=== PATIENT | male | born 1990 | race Hispanic/Latino ===

== ENCOUNTER 2016-04-10 16:39 | Emergency (ER) | payer MEDICARE, MEDICAID ==
[2016-04-10 18:55] LABS: Urine Drugs of Abuse Note Disclamer
[2016-04-10 19:44] LABS: Bilirubin,Urine NEG (Negative)
[2016-04-10 19:45] LABS: Blood,Urine NEG (Negative); Ketones,Urine NEG (Negative); Leukocyte Esterase,Urine NEG (Negative); Mucus,Urine FEW /HPF; Nitrite,Urine NEG (Negative); Protein,Urine <15 mg/dL mg/dL (Negative); Urobilinogen,Urine < 2.0 mg/dL (<2.0)
[2016-04-10 19:47] LABS: Anion Gap 19 mmol/L; Blood Urea Nitrogen 14 mg/dL (9-20); Carbon Dioxide 22 mmol/L (22-30); Chloride 99.4 mmol/L (98-107); Glucose 100 mg/dL (75-100); Potassium 4.2 mmol/L (3.6-5.0); Sodium 136 mmol/L (137-145)
[2016-04-10 19:55] LABS: Hematocrit 44.2 % (35.5-45.6); Hemoglobin 15.5 gm/dl (11.8-15.2); Mean Corpuscular HGB Conc 35 % (32-34); Mean Corpuscular Hemoglobin 33 pg (28-32); Mean Corpuscular Volume 94 fl (84-94); Platelet Count 197 K/mm3 (140-440); Red Cell Distribution Width 12.4 % (13.2-15.2); White Blood Count 10.1 K/mm3 (4.5-11.0)
--- NOTE | 2016-04-10 20:43 | Emergency Department Report ---
HPI - General Chief Complaint: Psych Time Seen by Provider: 04/10/16 20:19 - HPI HPI: The patient is a 25-year-old male who presents for evaluation of mental health. The patient reports 1 day of constant severe sadness, and thoughts of suicidal ideation. He states that he has experienced thoughts of hanging himself and hanging other people. The patient denies fever, headache, unexplained weight loss or weight gain, heat or cold intolerance, skin, hair, or nail changes, neuro deficits, or auditory or visual hallucinations. ED Past Medical Hx - Past Medical History Hx Psychiatric Treatment: Yes (denies, although has been hosptialized for SI in past) - Surgical History Past Surgical History?: No - Social History Smoking Status: Never Smoker Substance Use Type: None - Medications Home Medications: Home Medications Medication Instructions Recorded Confirmed Last Taken Type SEROquel 400 mg PO DAILY 04/10/16 04/10/16 Unknown History ED Review of Systems ROS: Stated complaint: HEARING VOICES Other details as noted in HPI Constitutional: denies: fever ENT: denies: throat or neck pain Respiratory: denies: cough, shortness of breath Cardiovascular: denies: chest pain Endocrine: denies unexplained weight loss or gain Gastrointestinal: denies: abdominal pain, nausea Genitourinary: denies: dysuria Musculoskeletal: denies: leg swelling Skin: denies: rash Neurological: denies: headache Hematological/Lymphatic: denies: easy bleeding or easy bruising Psych: reports sadness, SI Physical Exam - Physical Exam Vital Signs: Vital Signs 04/10/16 17:53 Temperature 98.3 F Pulse Rate 99 H Respiratory 16 Rate Blood Pressure 146/87 O2 Sat by Pulse 99 Oximetry Physical Exam: General: well-nourished, well-developed, no acute distress Head: Normocephalic, atraumatic Eyes: normal sclera ENT: Mucous membranes are pale and dry Neck: No neck stiffness, no cervical adenopathy Respiratory: Breath sounds equal bilaterally, no wheezing, rales, or rhonchi Cardio: S1 and S2 present, no murmurs, rubs, gallops, capillary refill is delayed Abdomen: Normoactive bowel sounds, soft abdomen, no tenderness Musc: No pitting edema Skin: No rash Neuro: no facial drooping, normal speech Psych: Flat affect, poor insight, patient delusional, depressed mood ED Course Vital Signs 04/10/16 17:53 Temperature 98.3 F Pulse Rate 99 H Respiratory 16 Rate Blood Pressure 146/87 O2 Sat by Pulse 99 Oximetry ED Medical Decision Making - Lab Data Result diagrams: 04/10/16 19:09 04/10/16 19:09 - Medical Decision Making The patient was seen and examined by myself. The patient is placed on a inside b2b sales and continuous pulse ox. On initial evaluation, the patient was found to be in no distress. IV access is established and the patient given 1 L normal saline fluid bolus for treatment of his dehydration. Labs are obtained. Lab results are grossly unremarkable. CT scan of the head is obtained and is negative. The patient is medically clear. Mental health is consulted. Mental health evaluates the patient and agrees that the patient is exhibiting symptoms consistent with acute psychosis. A 1013 is completed. The patient will be admitted to a psychiatric facility once bed placement is obtained. Critical care attestation.: If time is entered above; I have spent that time in minutes in the direct care of this critically ill patient, excluding procedure time. ED Disposition Clinical Impression: Suicidal behavior, Acute psychosis, Dehydration Disposition: DC/TX PSY HOSP/PSY UNIT Is pt being admited?: No Does the pt Need Aspirin: No Condition: Stable Referrals: PRIMARY CARE [Primary Care Provider] - 3-5 Days Time of Disposition: 20:43
[2016-04-10] MEDS ORDERED: NACL 0.9% 1000 ML 1,000 ML IV ONE (20:54)
--- NOTE | 2016-04-11 03:50 | Cat Scan Report ---
FINAL REPORT PROCEDURE: CT HEAD/BRAIN WO CON TECHNIQUE: Computerized tomography of the head was performed without contrast material. HISTORY: Headache COMPARISON: No prior studies are available for comparison. FINDINGS: Skull and scalp: Normal. Paranasal sinuses: Normal. Ventricles and subarachnoid spaces: Normal. Cerebrum: No evidence of hemorrhage, acute infarction or mass . Cerebellum and brainstem: No evidence of hemorrhage, acute infarction or mass. Vasculature: Normal. Comments: The patient's head is slightly rotated which creates a slightly asymmetric appearance to the ventricles.. IMPRESSION: 1. Overall negative CT brain without contrast when accounting for slight distortion of structures due to patient rotation. There is no CT evidence of intracranial hemorrhage or edema or shift or infarct or acute finding. 2. If there is continued concern for brain abnormality or unexplained symptoms, additional diagnostic evaluation advised only clinically indicated.
[2016-04-11] MEDS ORDERED: MILK OF MAGNESIA PO PRN (04:36)
[2016-04-11] MEDS ORDERED: ALUM-MAG HYDROX-SIMETH 200-200-20MG/5ML PO PRN (04:36)
[2016-04-11] MEDS ORDERED: TYLENOL PO PRN (04:36)
[2016-04-11] MEDS ORDERED: SEROQUEL 400 MG PO SCH (10:00)
[2016-04-11 18:51] VITALS: BP 126/76
--- NOTE | 2016-04-11 19:48 | Consultation ---
History of Present Illness - Reason for Consult Reason for consult: psych management - Chief Complaint Chief complaint: CC: "need good medication" Patient is a 25 year old WM with prior psych history of SCPT. Patient presents to [facility] in a disorganized fashion. He is unable to tell me why he is at the hospital. He does admit to +AH and +VH but can't say how long these symptoms have been occurring. Regarding any triggers he can't say. The content of the AH is unknown "I'm not sure." The VH consists of "people in towels." Patient was quite disorganized during our discussion, often jumping to various unrelated topics. He notes that "I'm not sure", regarding any symptoms of depression. He did deny any SI/HI. Initially denied any illicit drugs or etoh but then admitted to consistent THC use. Overall patient was too disorganized to give any linear presentation as to what brought him into the hospital or has contributed to his presentation. Medications and Allergies Allergies Allergy/AdvReac Type Severity Reaction Status Date / Time No Known Allergies Allergy Verified 08/17/15 22:15 Home Medications Medication Instructions Recorded Confirmed Last Taken Type SEROquel 400 mg PO DAILY 04/10/16 04/10/16 Unknown History Active Meds: Active Medications Acetaminophen (Tylenol) 650 mg PO Q4HR PRN PRN Reason: Pain MILD(1-3)/Fever >100.5/GREEN Al Hydrox/Mg Hydrox/Simethicone (Alum-Mag Hydrox-Simeth [phone]/5ml) 30 ml PO Q4HR PRN PRN Reason: Indigestion Magnesium Hydroxide (Milk Of Magnesia) 30 ml PO Q12HR PRN PRN Reason: Constipation Quetiapine Fumarate (Seroquel) 400 mg PO DAILY [facility] Last Admin: 04/11/16 11:00 Dose: 400 mg Past psychiatric history - past Psychiatric treatment and history Psych: Schizophrenia psychiatric treatment history: inpt: "lots"- pt couldn't give details outp "Yari" +SA via O/D "I'm not even sure." unknown prior psych meds unknown family psych history Substance history: no etoh use THC:- everyday use, last used yesterday, using for last 8 years, arrested with DWI secondary to marijuana use, has been in rehab at [place] - Social History Social history: other (Lives at [place], no children, no dating, no abuse history, no work, family support comes from the father, education:12 grade) Mental Status Exam - Vital signs Last Vital Signs Temp 98.6 F 04/11/16 11:00 Pulse 70 04/11/16 11:00 Resp 18 04/11/16 11:00 BP 126/76 04/11/16 11:00 Pulse Ox 99 04/11/16 11:00 - Exam Orientation: person Affect: flat Mood: appropriate Thought content: delusions Thought Process: Circumstantial, Tangential, Disorganized Perceptions: visual, auditory, hallucinations Speech: normal rate and pattern Concentration: distractible, unable to pay attention Motor activity: normal Level of consciousness: alert Memory: Intact Interaction: cooperative (AAO x 1, date 1998, states he's at [place], spelled WORLD backwards correctly, states President is [place]) Mini mental status exam(if necessary): 18-23 Results Result Diagrams: 04/10/16 19:09 04/10/16 19:09 Abnormal lab results 04/10/16 04/10/16 Range/Units 19:09 19:09 Hgb 15.5 H (11.8-15.2) gm/dl MCH 33 H (28-32) pg MCHC 35 H (32-34) % RDW 12.4 L (13.2-15.2) % Sodium 136 L (137-145) mmol/L Creatinine 0.7 L (0.8-1.5) mg/dL All other labs normal. Assessment and Plan Assessment and plan: Patient is a 25 year old WM with prior psych history of SCPT. Patient presents to [facility] in a disorganized fashion. He is unable to tell me why he is at the hospital. He does admit to +AH and +VH though. psychosis: continue treatment with Seroquel to decreased psychosis and will monitor -transfer to in psych facility secondary to psychosis, disorganized behaviors, and substance use, may want to check for any metabolic syndrome via HB1AC and lipid panel. Obtain collateral - Psychiatric problem (1) Schizophrenia Current Visit: Yes Status: Acute Qualifiers: Schizophrenia type: paranoid schizophrenia Qualified Code(s): F20.0 - Paranoid schizophrenia
== END 2016-04-12 00:57 ==
LOC: ED 16:39 → EEVIPCON 16:39 → ED 04-12 00:57
DX: F23 Brief psychotic disorder (principal); R45.851 Suicidal ideations; E86.0 Dehydration
CPT/HCPCS: 36415; 70450; 80048; 80307; 81001; 85027; 96360; 99285; G0480; J7030; 80320

== ENCOUNTER 2016-05-25 19:13 | Emergency (ER) | payer MEDICARE, MEDICAID ==
[2016-05-25 20:51] LABS: Basophils % (Auto) 0.4 % (0.0-1.8); Eosinophils % (Auto) 5.8 % (0.0-4.3); Hematocrit 42.7 % (35.5-45.6); Hemoglobin 14.6 gm/dl (11.8-15.2); Mean Corpuscular HGB Conc 34 % (32-34); Mean Corpuscular Hemoglobin 32 pg (28-32); Mean Corpuscular Volume 94 fl (84-94); Platelet Count 180 K/mm3 (140-440); Red Blood Count 4.56 M/mm3 (3.65-5.03); Red Cell Distribution Width 12.8 % (13.2-15.2); White Blood Count 8.1 K/mm3 (4.5-11.0)
[2016-05-25 20:58] LABS: Anion Gap 18 mmol/L; BUN/Creatinine Ratio 11.66; Blood Urea Nitrogen 7 mg/dL (9-20); Calcium 8.6 mg/dL (8.4-10.2); Carbon Dioxide 21 mmol/L (22-30); Chloride 102.3 mmol/L (98-107); Glucose 92 mg/dL (75-100); Potassium 3.7 mmol/L (3.6-5.0); Sodium 138 mmol/L (137-145)
--- NOTE | 2016-05-26 03:34 | Emergency Department Report ---
ED Psych HPI - General Chief Complaint: Psych Stated Complaint: FEET PAIN Time Seen by Provider: 05/26/16 03:19 Source: patient Mode of arrival: Stretcher - History of Present Illness Initial Comments: Patient is a 25-year-old male with history of schizophrenia and psychosis who presents to the ER for "psych help". Patient is a poor historian and cannot give a linear coherent reason for coming to the ER. Patient reports he is supposed to be taking Risperdal and Depakote but cannot report when the last time he has taken it or his dosages. He should also reports bilateral foot pain. Otherwise no fevers, chills, headaches, shortness of breath, chest pain, nausea, vomiting, diarrhea, travel, or sick contacts. Patient denies any suicidal ideation or homicidal ideation. - Related Data Home Medications Medication Instructions Recorded Confirmed Last Taken SEROquel 400 mg PO DAILY 04/10/16 04/10/16 Unknown Allergies Allergy/AdvReac Type Severity Reaction Status Date / Time quetiapine fumarate Allergy Unknown Verified 05/26/16 03:04 [From Seroquel] ED Review of Systems ROS: Stated complaint: FEET PAIN Other details as noted in HPI Comment: All other systems reviewed and negative ED Past Medical Hx - Past Medical History Previous Medical History?: Yes Hx Psychiatric Treatment: Yes (denies, although has been hosptialized for SI in past) Additional medical history: bipolar and schizo, - Surgical History Past Surgical History?: No - Social History Smoking Status: Current Every Day Smoker Substance Use Type: Alcohol - Medications Home Medications: Home Medications Medication Instructions Recorded Confirmed Last Taken Type SEROquel 400 mg PO DAILY 04/10/16 04/10/16 Unknown History ED Physical Exam - General Limitations: No Limitations General appearance: alert, in no apparent distress - Head Head exam: Present: atraumatic, normocephalic - Eye Eye exam: Present: normal appearance - ENT ENT exam: Present: mucous membranes moist - Neck Neck exam: Present: normal inspection - Respiratory Respiratory exam: Present: normal lung sounds bilaterally. Absent: respiratory distress - Cardiovascular Cardiovascular Exam: Present: regular rate, normal rhythm. Absent: systolic murmur, diastolic murmur, rubs, gallop - GI/Abdominal GI/Abdominal exam: Present: soft, normal bowel sounds - Rectal Rectal exam: Present: deferred - Extremities Exam Extremities exam: Present: normal inspection - Back Exam Back exam: Present: normal inspection - Neurological Exam Neurological exam: Present: alert, oriented X3 - Psychiatric Psychiatric exam: Present: flat affect, other (tangential thinking, cannot maintain eye contact) - Skin Skin exam: Present: warm, dry, intact, normal color. Absent: rash ED Course Vital Signs 05/25/16 05/26/16 05/26/16 19:33 03:15 03:56 Temperature 98.1 F 98.0 F Pulse Rate 85 52 L Respiratory 16 18 18 Rate Blood Pressure 125/79 91/43 [Left] O2 Sat by Pulse 99 100 99 Oximetry 05/26/16 11:00 Temperature 96.5 F L Pulse Rate 76 Respiratory 16 Rate Blood Pressure 102/55 [Left] O2 Sat by Pulse 100 Oximetry ED Medical Decision Making - Lab Data Result diagrams: 05/25/16 20:26 05/25/16 20:26 - Medical Decision Making Psych consult appreciated and noted. Pt to be admitted to inpatient psych services and to be started on risperdal and cogentin Critical care attestation.: If time is entered above; I have spent that time in minutes in the direct care of this critically ill patient, excluding procedure time. ED Disposition Clinical Impression: Psychosis Schizophrenia Qualifiers: Schizophrenia type: paranoid schizophrenia Qualified Code(s): F20.0 - Paranoid schizophrenia Disposition: OP ADMITTED IP TO THIS HOSP Is pt being admited?: Yes Condition: Stable
[2016-05-26 03:40] LABS: Urine Drugs of Abuse Note Disclamer
[2016-05-26 03:48] LABS: Bilirubin,Urine NEG (Negative); Blood,Urine NEG (Negative); Ketones,Urine NEG (Negative); Leukocyte Esterase,Urine NEG (Negative); Nitrite,Urine NEG (Negative); Protein,Urine <15 mg/dL mg/dL (Negative); Urobilinogen,Urine < 2.0 mg/dL (<2.0)
--- NOTE | 2016-05-26 14:53 | Consultation ---
History of Present Illness - Reason for Consult Consult date: 05/26/16 Reason for consult: Mental Health Evaluation Requesting physician: GARIMA NAVA - Chief Complaint Chief complaint: "I have foot pain" - History of Present Psychiatric Illness Patient is a 25-year-old male with history of schizophrenia and psychosis who presents to the ER for "psych help". Today patient is calm, cooperative with a non linear thought process. He is fixed and focus on his "feet pain." He stated that he went to a local pharmacy wanting help for his feet pain. He stated, "That's all I remember." He could not tell me anything about what happened at the pharmacy. During the discussion I had to redirect him, because he stated again, "My feet hurt." He could tell me he resides at [address], but was not able to tell me the President of or the name of this hospital. He denies symptoms of depression or a poor appetite. He did admit to smoking marijuana. He is positive for marijuana. He denies SI/HI's and AVH's at this time. Per ER admission, patient stated that he takes risperdal and depakote. The patient could not confirm that. Medications and Allergies Allergies Allergy/AdvReac Type Severity Reaction Status Date / Time quetiapine fumarate Allergy Unknown Verified 05/26/16 03:04 [From Seroquel] Home Medications Medication Instructions Recorded Confirmed Last Taken Type SEROquel 400 mg PO DAILY 04/10/16 04/10/16 Unknown History Past psychiatric history - Past Medical History Past Medical History: No medical history Past Surgical History: No surgical history - past Psychiatric treatment and history Psych: Schizophrenia psychiatric treatment history: Patient states he has been to multiple inpatients in the [facility]. He could not name any. Denies family hx of psy - Social History Social history: other (Live at [facility], HS graduate) Mental Status Exam - Vital signs Last Vital Signs Temp 98.0 F 05/26/16 03:15 Pulse 52 L 05/26/16 03:15 Resp 18 05/26/16 03:56 BP 91/43 05/26/16 03:15 Pulse Ox 99 05/26/16 03:56 - Exam Narrative exam: ROS (+) disorganized, (-) depression, (+) psychosis MSE: Appearance: disheveled, cooperative Behavior: poor eye contact Speech: regular rate and tone Mood: 'I don't have a mood" Affect: constricted Thought Process: limited, fixed, thought blocking Thought Content: denies SI/HI's and AVH's Cognition: A/Ox 2, confused Motor Activity: ambulatory Insight: poor Judgment: poor Results Result Diagrams: 05/25/16 20:26 05/25/16 20:26 Abnormal lab results 05/25/16 05/25/16 Range/Units 20:26 20:26 RDW 12.8 L (13.2-15.2) % [place] % (Auto) 8.0 H (0.0-7.3) % Eos % (Auto) 5.8 H (0.0-4.3) % Eos # 0.5 H (0.0-0.4) K/mm3 Carbon Dioxide 21 L (22-30) mmol/L BUN 7 L (9-20) mg/dL Creatinine 0.6 L (0.8-1.5) mg/dL All other labs normal. Assessment and Plan Assessment and plan: Impression: Psychosis NOS/Substance Use DO. Patient is a 25-year-old male with history of schizophrenia and psychosis who presents to the ER for "psych help". Today patient is calm, cooperative with a non linear thought process. He is fixed and focus on his "feet pain." He stated that he went to a local pharmacy wanting help for his feet pain. He stated, "That's all I remember." He denies SI /HI's at this time. Positive for marijuana. Per ER admission note, patient stated that he takes risperdal and depakote. The patient could not confirm that. Patient is positive for marijuana. DD: Schizophrenia, Shizoaffective DO Recommendation/Plan: Continue 1013 with placement to inpatient psy services. Start risperdal 2 mg PO HS for psychosis and Cogentin 0.5 mg PO HS for EPS prophylaxis. IL serum ordered.
[2016-05-26 15:44] VITALS: BP 102/55
[2016-05-26] MEDS ORDERED: RisperDAL PO SCH (22:00)
[2016-05-26] MEDS ORDERED: COGENTIN PO SCH (22:00)
== END 2016-05-26 15:46 | disposition admitted as inpatient to this hospital (09) ==
LOC: ED 19:13 → EEVIPCON 19:13 → ED 05-26 15:46
DX: F29 Unspecified psychosis not due to a substance or known physiological condition (principal); F20.0 Paranoid schizophrenia; F31.9 Bipolar disorder, unspecified; F17.200 Nicotine dependence, unspecified, uncomplicated
CPT/HCPCS: 36415; 80048; 80164; 80307; 81001; 85025; 99285; G0480; 80320

== ENCOUNTER 2016-09-06 14:18 | Emergency (ER) | payer MEDICARE, MEDICAID ==
[2016-09-06 15:07] VITALS: BP 113/62
[2016-09-06 15:52] LABS: Urine Drugs of Abuse Note Disclamer
[2016-09-06 16:04] LABS: Bilirubin,Urine NEG (Negative); Blood,Urine NEG (Negative); Ketones,Urine NEG (Negative); Leukocyte Esterase,Urine NEG (Negative); Nitrite,Urine NEG (Negative); Protein,Urine <15 mg/dL mg/dL (Negative); RBC,Urine < 1.0 /HPF (0.0-6.0); Urobilinogen,Urine < 2.0 mg/dL (<2.0)
[2016-09-06 16:49] LABS: Basophils % (Auto) 0.7 % (0.0-1.8); Eosinophils % (Auto) 1.9 % (0.0-4.3); Hematocrit 45.6 % (35.5-45.6); Hemoglobin 15.8 gm/dl (11.8-15.2); Mean Corpuscular HGB Conc 35 % (32-34); Mean Corpuscular Hemoglobin 33 pg (28-32); Mean Corpuscular Volume 94 fl (84-94); Platelet Count 157 K/mm3 (140-440); Red Blood Count 4.87 M/mm3 (3.65-5.03); Red Cell Distribution Width 12.8 % (13.2-15.2)
[2016-09-06 17:06] LABS: Anion Gap 23 mmol/L; Blood Urea Nitrogen 7 mg/dL (9-20); Calcium 9.3 mg/dL (8.4-10.2); Carbon Dioxide 19 mmol/L (22-30); Chloride 104.9 mmol/L (98-107); Glucose 107 mg/dL (75-100); Potassium 3.6 mmol/L (3.6-5.0); Sodium 143 mmol/L (137-145)
--- NOTE | 2016-09-07 00:54 | ED Elopement Review ---
ED Pt Elopement review - Results review Lab results: Laboratory Tests 09/06/16 09/06/16 09/06/16 15:16 15:16 16:36 WBC RBC Hgb Hct MCV MCH MCHC RDW Plt Count Lymph % (Auto) [place] % (Auto) Eos % (Auto) Baso % (Auto) Lymph # [place] # Eos # Baso # Seg Neutrophils % Seg Neutrophils # Sodium 143 Potassium 3.6 Chloride 104.9 Carbon Dioxide 19 L Anion Gap 23 BUN 7 L Creatinine 0.7 L Estimated GFR > 60 BUN/Creatinine Ratio 10.00 Glucose 107 H Calcium 9.3 Urine Color Straw Urine Turbidity Clear Urine pH 7.0 Ur Specific [place] 1.004 Urine Protein <15 mg/dl Urine Glucose (UA) Neg Urine Ketones Neg Urine Blood Neg Urine Nitrite Neg Urine Bilirubin Neg Urine Urobilinogen < 2.0 Ur Leukocyte Esterase Neg Urine WBC (Auto) 0.0 Urine RBC (Auto) < 1.0 U Epithel Cells (Auto) < 1.0 Urine Opiates Screen Presumptive negative Urine Methadone Screen Presumptive negative Ur Barbiturates Screen Presumptive negative Ur Phencyclidine Scrn Presumptive negative Ur Amphetamines Screen Presumptive negative U Benzodiazepines Scrn Presumptive negative Urine Cocaine Screen Presumptive negative U Marijuana (THC) Screen Presumptive negative Drugs of Abuse Note Disclamer Plasma/Serum Alcohol 09/06/16 09/06/16 16:36 16:36 WBC 5.0 RBC 4.87 Hgb 15.8 H Hct 45.6 MCV 94 MCH 33 H MCHC 35 H RDW 12.8 L Plt Count 157 Lymph % (Auto) 37.6 H [place] % (Auto) 7.2 Eos % (Auto) 1.9 Baso % (Auto) 0.7 Lymph # 1.9 [place] # 0.4 Eos # 0.1 Baso # 0.0 Seg Neutrophils % 52.6 Seg Neutrophils # 2.6 Sodium Potassium Chloride Carbon Dioxide Anion Gap BUN Creatinine Estimated GFR BUN/Creatinine Ratio Glucose Calcium Urine Color Urine Turbidity Urine pH Ur Specific [place] Urine Protein Urine Glucose (UA) Urine Ketones Urine Blood Urine Nitrite Urine Bilirubin Urine Urobilinogen Ur Leukocyte Esterase Urine WBC (Auto) Urine RBC (Auto) U Epithel Cells (Auto) Urine Opiates Screen Urine Methadone Screen Ur Barbiturates Screen Ur Phencyclidine Scrn Ur Amphetamines Screen U Benzodiazepines Scrn Urine Cocaine Screen U Marijuana (THC) Screen Drugs of Abuse Note Plasma/Serum Alcohol 0.08 H - Call Back decision Pt Call Back Decision: Pt to F/U with PMD (tachycardia)
== END 2016-09-06 16:39 | disposition left against medical advice (07) ==
LOC: ED 14:18
DX: R56.9 Unspecified convulsions (principal); F17.200 Nicotine dependence, unspecified, uncomplicated; Z88.8 Allergy status to other drugs, medicaments and biological substances; Z53.21 Procedure and treatment not carried out due to patient leaving prior to being seen by health care provider
CPT/HCPCS: 36415; 80048; 80307; 81001; 85025; G0480; 80320

== ENCOUNTER 2016-09-18 04:01 | Emergency (ER) | payer MEDICARE ==
[2016-09-18 04:31] LABS: Basophils % (Auto) 0.9 % (0.0-1.8); Eosinophils % (Auto) 4.4 % (0.0-4.3); Hematocrit 48.1 % (35.5-45.6); Hemoglobin 16.5 gm/dl (11.8-15.2); Mean Corpuscular HGB Conc 34 % (32-34); Mean Corpuscular Hemoglobin 32 pg (28-32); Mean Corpuscular Volume 94 fl (84-94); Platelet Count 194 K/mm3 (140-440); Red Blood Count 5.13 M/mm3 (3.65-5.03); Red Cell Distribution Width 12.9 % (13.2-15.2); White Blood Count 6.3 K/mm3 (4.5-11.0)
[2016-09-18 04:50] LABS: Blood Urea Nitrogen 7 mg/dL (9-20); Calcium 9.4 mg/dL (8.4-10.2); Carbon Dioxide 23 mmol/L (22-30); Chloride 99.9 mmol/L (98-107); Glucose 91 mg/dL (75-100); Sodium 136 mmol/L (137-145)
[2016-09-18 05:08] LABS: Anion Gap 17 mmol/L
[2016-09-18 05:09] LABS: Potassium 4.3 mmol/L (3.6-5.0)
[2016-09-18 07:56] LABS: Urine Drugs of Abuse Note Disclamer
[2016-09-18 08:02] LABS: Bilirubin,Urine NEG (Negative); Blood,Urine SM (Negative); Ketones,Urine NEG (Negative); Leukocyte Esterase,Urine NEG (Negative); Nitrite,Urine NEG (Negative); Protein,Urine <15 mg/dL mg/dL (Negative); RBC,Urine < 1.0 /HPF (0.0-6.0); Urobilinogen,Urine < 2.0 mg/dL (<2.0); WBC,Urine < 1.0 /HPF (0.0-6.0)
--- NOTE | 2016-09-18 08:25 | Emergency Department Report ---
ED Psych HPI - General Chief Complaint: Psych Stated Complaint: MENTAL HEALTH EVALUATION Time Seen by Provider: 09/18/16 08:12 Source: patient Mode of arrival: Ambulatory - History of Present Illness Initial Comments: 25-year-old male with history of schizophrenia and bipolar disorder coming with main complaint of thoughts of hurting other people. Patient stated that he is out of his Thorazine. He is hearing voices ask him to kill other people denied visual hallucination and denied homicidal ideation. MD Complaint: feels depressed -: days(s) Associated Psychiatric Symptoms: depression, homicidal ideation, racing thoughts , auditory hallucinations History of same: Yes Quality: constant Improves With: medication Context: not taking psychiatric Associated Symptoms: denies: confusion, headache, shortness of breath, nausea, vomiting Treatments Prior to Arrival: none - Related Data Home Medications Medication Instructions Recorded Confirmed Last Taken SEROquel 400 mg PO DAILY 04/10/16 04/10/16 Unknown Allergies Allergy/AdvReac Type Severity Reaction Status Date / Time quetiapine fumarate Allergy Unknown Verified 05/26/16 03:04 [From Seroquel] ED Review of Systems ROS: Stated complaint: MENTAL HEALTH EVALUATION Other details as noted in HPI Comment: All other systems reviewed and negative Constitutional: denies: chills, fever ENT: denies: throat pain Respiratory: denies: cough, orthopnea, shortness of breath Cardiovascular: denies: chest pain, palpitations, dyspnea on exertion Gastrointestinal: denies: abdominal pain, nausea, vomiting, diarrhea Genitourinary: denies: dysuria, frequency Neurological: denies: headache, numbness, paresthesias ED Past Medical Hx - Past Medical History Previous Medical History?: Yes Hx Psychiatric Treatment: Yes (denies, although has been hosptialized for SI in past) Additional medical history: bipolar and schizo, - Surgical History Past Surgical History?: No - Social History Smoking Status: Current Every Day Smoker Substance Use Type: Alcohol, Other - Medications Home Medications: Home Medications Medication Instructions Recorded Confirmed Last Taken Type SEROquel 400 mg PO DAILY 04/10/16 04/10/16 Unknown History ED Physical Exam - General Limitations: No Limitations General appearance: alert, in no apparent distress, anxious - Head Head exam: Present: atraumatic, normocephalic - Eye Eye exam: Present: normal appearance - ENT ENT exam: Present: normal exam - Neck Neck exam: Present: normal inspection, full ROM. Absent: tenderness, meningismus, lymphadenopathy - Respiratory Respiratory exam: Present: normal lung sounds bilaterally. Absent: respiratory distress, wheezes, rales, rhonchi, chest wall tenderness, accessory muscle use, decreased breath sounds, prolonged expiratory - Cardiovascular Cardiovascular Exam: Present: regular rate, normal rhythm, normal heart sounds - GI/Abdominal GI/Abdominal exam: Present: soft. Absent: distended, tenderness, guarding, rebound, rigid, normal bowel sounds, hyperactive bowel sounds, hypoactive bowel sounds, organomegaly, mass, bruit, pulsatile mass - Back Exam Back exam: Absent: normal inspection, CVA tenderness (R), CVA tenderness (L) - Neurological Exam Neurological exam: Present: alert, oriented X3, CN II-XII intact - Psychiatric Psychiatric exam: Present: depressed, anxious, manic, homicidal ideation. Absent: suicidal ideation - Skin Skin exam: Present: warm, normal color ED Course Vital Signs 09/18/16 09/18/16 04:09 07:05 Temperature 98.7 F Pulse Rate 101 H 72 Respiratory 18 17 Rate Blood Pressure 142/91 Blood Pressure 124/73 [Right] O2 Sat by Pulse 96 100 Oximetry - Reevaluation(s) Reevaluation #1: 09/18/16 14:10 Patient remained stable in the ER will be transferred to anchor facility for further management ED Medical Decision Making - Lab Data Result diagrams: 09/18/16 04:16 09/18/16 04:16 Critical care attestation.: If time is entered above; I have spent that time in minutes in the direct care of this critically ill patient, excluding procedure time. ED Disposition Clinical Impression: Acute psychosis, Suicidal ideation Disposition: [id number]/TX-65 PSY HOSP/PSY UNIT Is pt being admited?: No Condition: Stable Referrals: PRIMARY CARE, [Primary Care Provider] - 3-5 Days
[2016-09-18 08:35] VITALS: BP 124/73
--- NOTE | 2016-09-18 15:59 | Consultation ---
History of Present Illness - Reason for Consult Consult date: 09/18/16 Reason for consult: Mental Health Evaluation Requesting physician: DEBRA SOOD - Chief Complaint Chief complaint: "I want my Thorazine" - History of Present Psychiatric Illness 25-year-old male with history of schizophrenia and bipolar disorder presenting to [facility] for HI's. Today patient is irritable and disorganized during the assessment. Before I can asked the patient a question, he stated, "I want my thorazine." He could not tell me the last time he took thorazine. He was not able to tell me if he was recently discharged from a mental health facility. He stated the voices he hear are "awful." He stated the voices are telling him to "kill people." He could not tell me who he want to kill. He denies SI's and VH' s. Patient is a poor historian at this time. Medications and Allergies Allergies Allergy/AdvReac Type Severity Reaction Status Date / Time quetiapine fumarate Allergy Unknown Verified 05/26/16 03:04 [From Seroquel] Home Medications Medication Instructions Recorded Confirmed Last Taken Type SEROquel 400 mg PO DAILY 04/10/16 04/10/16 Unknown History Past psychiatric history - Past Medical History Past Medical History: other (unable to obtain) Past Surgical History: Other (unable to obtain) - past Psychiatric treatment and history Psych: Bipolar, Schizophrenia psychiatric treatment history: Multiple inpatient psy setting. Denies a fam psy hx. - Social History Social history: other (Reside at a senior living) Mental Status Exam - Vital signs Last Vital Signs Temp 98.7 F 09/18/16 04:09 Pulse 72 09/18/16 07:05 Resp 17 09/18/16 07:05 BP 124/73 09/18/16 07:05 Pulse Ox 100 09/18/16 07:05 - Exam Narrative exam: ROS: (+) psychosis MSE: Appearance: irritable Behavior: regular eye contact Speech: regular rate and tone Mood: unable to assess Affect: labile Thought Process: tangential Thought Content: denies SI/HI's and VH's, disorganized Motor Activity: sitting up Cognition: A/Ox 2 Insight: poor Judgment: poor Results Result Diagrams: 09/18/16 04:16 09/18/16 04:16 Abnormal lab results 09/18/16 09/18/1609/18/17 Range/Units 04:16 04:16 07:50 RBC 5.13 H (3.65-5.03) M/mm3 Hgb 16.5 H (11.8-15.2) gm/dl Hct 48.1 H (35.5-45.6) % RDW 12.9 L (13.2-15.2) % [place] % (Auto) 13.6 H (0.0-7.3) % Eos % (Auto) 4.4 H (0.0-4.3) % [place] # 0.9 H (0.0-0.8) K/mm3 Sodium 136 L (137-145) mmol/L BUN 7 L (9-20) mg/dL Creatinine 0.7 L (0.8-1.5) mg/dL Ur Specific [place] 1.002 L (1.003-1.030) All other labs normal. Assessment and Plan Assessment and plan: Impression: Unspecified Psychotic DO. Today patient is irritable and disorganized during the assessment. UDS negative. Alcohol serum wnl. DDx: Schizophrenia, R/O Bipolar Recommendation/Plan: Continue with 1013 with placement to [facility].
== END 2016-09-18 14:56 ==
LOC: ED 04:01
DX: R45.851 Suicidal ideations (principal); F23 Brief psychotic disorder; F17.200 Nicotine dependence, unspecified, uncomplicated
CPT/HCPCS: 36415; 80048; 80307; 81001; 85025; 99284; G0480; 80320

== ENCOUNTER 2016-12-03 16:57 | Emergency (ER) | payer MEDICARE | END 2016-12-03 17:00 | disposition left against medical advice (07) | LOC: ED 16:57 | DX: R45.851 Suicidal ideations (principal); Z53.21 Procedure and treatment not carried out due to patient leaving prior to being seen by health care provider ==

== ENCOUNTER 2016-12-30 11:57 | Emergency (ER) | payer MEDICARE ==
[2016-12-30 12:15] VITALS: BP 129/72
[2016-12-30 12:48] LABS: Basophils % (Auto) 0.8 % (0.0-1.8); Eosinophils % (Auto) 3.5 % (0.0-4.3); Hematocrit 45.3 % (35.5-45.6); Hemoglobin 15.9 gm/dl (11.8-15.2); Mean Corpuscular HGB Conc 35 % (32-34); Mean Corpuscular Hemoglobin 33 pg (28-32); Mean Corpuscular Volume 94 fl (84-94); Platelet Count 196 K/mm3 (140-440); Red Cell Distribution Width 12.6 % (13.2-15.2); White Blood Count 6.8 K/mm3 (4.5-11.0)
[2016-12-30 13:01] LABS: Urine Drugs of Abuse Note Disclamer
[2016-12-30 13:14] LABS: Bilirubin,Urine NEG (Negative); Blood,Urine NEG (Negative); Ketones,Urine NEG (Negative); Leukocyte Esterase,Urine NEG (Negative); Mucus,Urine FEW /HPF; Nitrite,Urine NEG (Negative); Protein,Urine <15 mg/dL mg/dL (Negative); Urobilinogen,Urine < 2.0 mg/dL (<2.0)
[2016-12-30 13:21] LABS: Anion Gap 19 mmol/L; BUN/Creatinine Ratio 18; Blood Urea Nitrogen 11 mg/dL (9-20); Calcium 9.2 mg/dL (8.4-10.2); Carbon Dioxide 23 mmol/L (22-30); Chloride 99.6 mmol/L (98-107); Glucose 79 mg/dL (75-100); Potassium 4.1 mmol/L (3.6-5.0); Sodium 137 mmol/L (137-145)
--- NOTE | 2016-12-30 19:31 | Emergency Department Report ---
ED Psych HPI - General Chief Complaint: Psych Stated Complaint: SUICIDAL Time Seen by Provider: 12/30/16 16:29 Source: patient Mode of arrival: Ambulatory Limitations: No Limitations - History of Present Illness Initial Comments: 26-year-old male with a past medical history of bipolar and schizophrenia presents to the hospital with complaints of suicidal and homicidal ideation as per triage. SI with plan reported as per triage note. Patient denies suicidal thoughts at this time, homicidal thoughts, or hallucinations. Patient states he wants to go home and he is taking his medication every day. No physical complaints reported. - Related Data Home Medications Medication Instructions Recorded Confirmed Last Taken chlorproMAZINE [Thorazine] 50 mg PO TID 12/30/16 12/30/16 Unknown Allergies Allergy/AdvReac Type Severity Reaction Status Date / Time quetiapine fumarate Allergy Unknown Verified 12/09/16 20:02 [From Seroquel] ED Review of Systems ROS: Stated complaint: SUICIDAL Other details as noted in HPI Comment: All other systems reviewed and negative Other: Constitutional: No fevers chills Eyes: No eye pain visual changes ENT: No ear pain or throat pain Neck: Denies pain Respiratory: Denies cough wheezing shortness of breath Cardiovascular: Denies chest pain, palpitations, syncope GI: Denies abdominal pain, nausea, vomiting, diarrhea : Denies dysuria Musculoskeletal: Denies back pain Skin: Denies rash, lesions, erythema Neurologic: Denies headache, numbness, weakness Psychiatric: Denies suicidal ideation, hallucinations ED Past Medical Hx - Past Medical History Hx Psychiatric Treatment: Yes (denies, although has been hosptialized for SI in past) Additional medical history: bipolar and schizo, - Social History Smoking Status: Current Every Day Smoker Substance Use Type: Alcohol, Cocaine, Heroin, Marijuana, Prescribed, Methamphetamines - Medications Home Medications: Home Medications Medication Instructions Recorded Confirmed Last Taken Type chlorproMAZINE [Thorazine] 50 mg PO TID 12/30/16 12/30/16 Unknown History ED Physical Exam - General Limitations: No Limitations - Other Other exam information: General: No limitations, patient is alert in no acute distress Head exam: Atraumatic, normocephalic Eyes exam: Normal appearance ENT: Moist mucous membrane, normal oropharynx Neck exam: Normal inspection, full range of motion, no meningismus nontender Respiratory exam: Clear to auscultation bilateral, no wheezes, rales, crackles Cardiovascular: Normal rate and rhythm, normal heart sounds Abdomen: Soft, nondistended, and nontender, with normal bowel sounds, no rebound, or guarding Extremity: Full range of motion normal inspection no deformity Back: Normal Inspection, full range of motion, no tenderness Neurologic: Alert, oriented x3, cranial nerves intact, no motor or sensory deficit Psychiatric: Flat affect Skin: Warm, dry, intact ED Course Vital Signs 12/30/16 12:11 Temperature 98.4 F Pulse Rate 77 Respiratory 18 Rate Blood Pressure 129/72 O2 Sat by Pulse 97 Oximetry - Reevaluation(s) Reevaluation #1: 12/30/16 19:30 Patient remained calm and cooperative any ED - Consultations Consultation #1: 12/30/16 19:31 Patient did receive mental health evaluation while in the ED. She also obtain a similar history is myself and the patient continuously denies suicidal or homicidal ideation and states he is taking his medications. Patient will be discharged ED Medical Decision Making - Lab Data Result diagrams: 12/30/16 12:30 12/30/16 12:30 Lab Results 12/30/16 12/30/16 12/30/16 Range/Units 12:30 12:30 12:30 WBC 6.8 (4.5-11.0) K/mm3 RBC 4.80 (3.65-5.03) M/mm3 Hgb 15.9 H (11.8-15.2) gm/dl Hct 45.3 (35.5-45.6) % MCV 94 (84-94) fl MCH 33 H (28-32) pg MCHC 35 H (32-34) % RDW 12.6 L (13.2-15.2) % Plt Count 196 (140-440) K/mm3 Lymph % (Auto) 40.7 H (13.4-35.0) % [place] % (Auto) 8.5 H (0.0-7.3) % Eos % (Auto) 3.5 (0.0-4.3) % Baso % (Auto) 0.8 (0.0-1.8) % Lymph # 2.8 (1.2-5.4) K/mm3 [place] # 0.6 (0.0-0.8) K/mm3 Eos # 0.2 (0.0-0.4) K/mm3 Baso # 0.1 (0.0-0.1) K/mm3 Seg Neutrophils % 46.5 (40.0-70.0) % Seg Neutrophils # 3.2 (1.8-7.7) K/mm3 Sodium 137 (137-145) mmol/L Potassium 4.1 (3.6-5.0) mmol/L Chloride 99.6 (98-107) mmol/L Carbon Dioxide 23 (22-30) mmol/L Anion Gap 19 mmol/L BUN 11 (9-20) mg/dL Creatinine 0.6 L (0.8-1.5) mg/dL Estimated GFR > 60 ml/min BUN/Creatinine Ratio 18 % Glucose 79 (75-100) mg/dL Calcium 9.2 (8.4-10.2) mg/dL Urine Color (Yellow) Urine Turbidity (Clear) Urine pH (5.0-7.0) Ur Specific [place] (1.003-1.030) Urine Protein (Negative) mg/dL Urine Glucose (UA) (Negative) mg/dL Urine Ketones (Negative) mg/dL Urine Blood (Negative) Urine Nitrite (Negative) Urine Bilirubin (Negative) Urine Urobilinogen (<2.0) mg/dL Ur Leukocyte Esterase (Negative) Urine WBC (Auto) (0.0-6.0) /HPF Urine RBC (Auto) (0.0-6.0) /HPF Urine Mucus /HPF Urine Opiates Screen Urine Methadone Screen Ur Barbiturates Screen Ur Phencyclidine Scrn Ur Amphetamines Screen U Benzodiazepines Scrn Urine Cocaine Screen U Marijuana (THC) Screen Drugs of Abuse Note Plasma/Serum Alcohol < 0.01 (0-0.07) gm% 12/30/16 12/30/16 Range/Units 12:38 12:38 WBC (4.5-11.0) K/mm3 RBC (3.65-5.03) M/mm3 Hgb (11.8-15.2) gm/dl Hct (35.5-45.6) % MCV (84-94) fl MCH (28-32) pg MCHC (32-34) % RDW (13.2-15.2) % Plt Count (140-440) K/mm3 Lymph % (Auto) (13.4-35.0) % [place] % (Auto) (0.0-7.3) % Eos % (Auto) (0.0-4.3) % Baso % (Auto) (0.0-1.8) % Lymph # (1.2-5.4) K/mm3 [place] # (0.0-0.8) K/mm3 Eos # (0.0-0.4) K/mm3 Baso # (0.0-0.1) K/mm3 Seg Neutrophils % (40.0-70.0) % Seg Neutrophils # (1.8-7.7) K/mm3 Sodium (137-145) mmol/L Potassium (3.6-5.0) mmol/L Chloride (98-107) mmol/L Carbon Dioxide (22-30) mmol/L Anion Gap mmol/L BUN (9-20) mg/dL Creatinine (0.8-1.5) mg/dL Estimated GFR ml/min BUN/Creatinine Ratio % Glucose (75-100) mg/dL Calcium (8.4-10.2) mg/dL Urine Color Straw (Yellow) Urine Turbidity Clear (Clear) Urine pH 7.0 (5.0-7.0) Ur Specific [place] 1.003 (1.003-1.030) Urine Protein <15 mg/dl (Negative) mg/dL Urine Glucose (UA) Neg (Negative) mg/dL Urine Ketones Neg (Negative) mg/dL Urine Blood Neg (Negative) Urine Nitrite Neg (Negative) Urine Bilirubin Neg (Negative) Urine Urobilinogen < 2.0 (<2.0) mg/dL Ur Leukocyte Esterase Neg (Negative) Urine WBC (Auto) 0.0 (0.0-6.0) /HPF Urine RBC (Auto) 2.0 (0.0-6.0) /HPF Urine Mucus Few /HPF Urine Opiates Screen Presumptive negative Urine Methadone Screen Presumptive negative Ur Barbiturates Screen Presumptive negative Ur Phencyclidine Scrn Presumptive negative Ur Amphetamines Screen Presumptive negative U Benzodiazepines Scrn Presumptive negative Urine Cocaine Screen Presumptive negative U Marijuana (THC) Screen Presumptive negative Drugs of Abuse Note Disclamer Plasma/Serum Alcohol (0-0.07) gm% - Medical Decision Making Labs unremarkable. Patient denies active suicidal or homicidal ideation. We' ll be discharged with outpatient follow-up encouraged - Differential Diagnosis SI, HI, psychosis, bipolar, schizophrenia Critical Care Time: No Critical care attestation.: If time is entered above; I have spent that time in minutes in the direct care of this critically ill patient, excluding procedure time. ED Disposition Clinical Impression: Schizophrenia, Bipolar disorder Disposition: DC-01 TO HOME OR SELFCARE Is pt being admited?: No Does the pt Need Aspirin: No Condition: Stable Instructions: Schizophrenia (ED), Bipolar Disorder (ED) Additional Instructions: Continue your current psychiatric medication and follow-up with your psychiatrist or the clinic provided. Referrals: [facility] [Outside] - 3-5 Days Time of Disposition: 19:32
== END 2016-12-30 20:15 | disposition home or self-care (01) ==
LOC: EEVIPCON 11:57 → ED 11:57
DX: F31.9 Bipolar disorder, unspecified (principal); F20.9 Schizophrenia, unspecified; F17.200 Nicotine dependence, unspecified, uncomplicated; F11.10 Opioid abuse, uncomplicated; F12.10 Cannabis abuse, uncomplicated; F14.10 Cocaine abuse, uncomplicated
CPT/HCPCS: 36415; 80048; 80307; 81001; 85025; 99284; G0480; 80320

== ENCOUNTER 2017-01-17 16:50 | Emergency (ER) | payer MEDICARE ==
[2017-01-17 17:49] LABS: Basophils % (Auto) 0.7 % (0.0-1.8); Eosinophils % (Auto) 3.1 % (0.0-4.3); Hematocrit 43.4 % (35.5-45.6); Hemoglobin 15.3 gm/dl (11.8-15.2); Mean Corpuscular HGB Conc 35 % (32-34); Mean Corpuscular Hemoglobin 33 pg (28-32); Mean Corpuscular Volume 94 fl (84-94); Platelet Count 177 K/mm3 (140-440); Red Blood Count 4.63 M/mm3 (3.65-5.03); Red Cell Distribution Width 12.9 % (13.2-15.2); White Blood Count 7.1 K/mm3 (4.5-11.0)
[2017-01-17 18:06] LABS: Anion Gap 16 mmol/L; BUN/Creatinine Ratio 10; Blood Urea Nitrogen 7 mg/dL (9-20); Calcium 9.5 mg/dL (8.4-10.2); Carbon Dioxide 27 mmol/L (22-30); Glucose 116 mg/dL (75-100); Potassium 4.3 mmol/L (3.6-5.0); Sodium 143 mmol/L (137-145)
[2017-01-17 20:25] LABS: Urine Drugs of Abuse Note Disclamer
[2017-01-17 20:36] LABS: Bilirubin,Urine NEG (Negative); Blood,Urine NEG (Negative); Ketones,Urine NEG (Negative); Leukocyte Esterase,Urine NEG (Negative); Mucus,Urine FEW /HPF; Nitrite,Urine NEG (Negative); Protein,Urine <15 mg/dL mg/dL (Negative); RBC,Urine < 1.0 /HPF (0.0-6.0); Urobilinogen,Urine < 2.0 mg/dL (<2.0)
[2017-01-18] MEDS ORDERED: HALDOL IM PRN (02:02)
[2017-01-18] MEDS ORDERED: ATIVAN IM PRN (02:02)
--- NOTE | 2017-01-18 02:03 | Emergency Department Report ---
ED General Adult HPI - General Chief complaint: Psych Stated complaint: MH Time Seen by Provider: 01/18/17 02:02 Source: patient, RN notes reviewed Mode of arrival: Ambulatory Limitations: No Limitations - History of Present Illness Initial comments: This is a 26-year-old male who was previously on known to this provider. The patient presents to the ER with a complaint of suicidality without plan. His symptoms are constant. They do not radiate anywhere. They have no exacerbating or relieving factors. Patient indicates no access to firearms, and indicates no overdose. -: Gradual Severity scale (0 -10): 0 Consistency: constant Improves with: none Worsens with: none Associated Symptoms: malaise, weakness. denies: confusion, chest pain, cough, diaphoresis, headaches, loss of appetite, nausea/vomiting, rash, seizure, shortness of breath, syncope - Related Data Home Medications Medication Instructions Recorded Confirmed Last Taken chlorproMAZINE [Thorazine] 50 mg PO TID 12/30/16 12/30/16 Unknown Allergies Allergy/AdvReac Type Severity Reaction Status Date / Time quetiapine fumarate Allergy Unknown Verified 12/09/16 20:02 [From Seroquel] ED Review of Systems ROS: Stated complaint: MH Other details as noted in HPI Constitutional: malaise. denies: fever Eyes: denies: eye discharge ENT: denies: epistaxis Respiratory: denies: cough Cardiovascular: denies: chest pain Gastrointestinal: denies: abdominal pain Genitourinary: denies: dysuria Neurological: weakness Psychiatric: depression, suicidal thoughts ED Past Medical Hx - Past Medical History Hx Psychiatric Treatment: Yes (denies, although has been hosptialized for SI in past) Additional medical history: bipolar and schizo, - Social History Smoking Status: Current Every Day Smoker Substance Use Type: None - Medications Home Medications: Home Medications Medication Instructions Recorded Confirmed Last Taken Type chlorproMAZINE [Thorazine] 50 mg PO TID 12/30/16 12/30/16 Unknown History ED Physical Exam - General Limitations: No Limitations General appearance: alert, in no apparent distress - Head Head exam: Present: atraumatic, normocephalic - Eye Eye exam: Present: normal appearance, PERRL, EOMI, other (visual acuity intact to finger counting, color perception, reading at a close distance). Absent: nystagmus - ENT ENT exam: Present: normal exam, normal orophraynx, mucous membranes moist, normal external ear exam - Neck Neck exam: Present: normal inspection, full ROM - Respiratory Respiratory exam: Present: normal lung sounds bilaterally. Absent: respiratory distress, chest wall tenderness - Cardiovascular Cardiovascular Exam: Present: regular rate, normal rhythm, normal heart sounds. Absent: systolic murmur, diastolic murmur, rubs, gallop - GI/Abdominal GI/Abdominal exam: Present: soft, normal bowel sounds. Absent: distended, tenderness, guarding, rebound, rigid, pulsatile mass - Rectal Rectal exam: Present: deferred - Extremities Exam Extremities exam: Present: normal inspection, full ROM, normal capillary refill , other (2+ pulses noted in the bilateral upper and lower extremities). Absent : pedal edema, joint swelling, calf tenderness - Back Exam Back exam: Present: normal inspection, full ROM. Absent: paraspinal tenderness , vertebral tenderness - Neurological Exam Neurological exam: Present: alert, oriented X3, CN II-XII intact, other ( Extraocular movements intact. Tongue midline. No facial droop. Facial sensation intact to light touch in the V1, V2, V3 distribution bilaterally. 5 and 5 strength in 4 extremities.. Sensation is intact to light touch in 4 extremities.). Absent: motor sensory deficit - Psychiatric Psychiatric exam: Present: suicidal ideation. Absent: homicidal ideation - Skin Skin exam: Present: warm, dry, intact, normal color. Absent: rash ED Course Vital Signs 01/17/17 01/17/17 01/18/17 17:18 20:55 01:51 Temperature 97.7 F 98.2 F 97.6 F Pulse Rate 71 78 64 Respiratory 18 16 16 Rate Blood Pressure 131/70 128/76 Blood Pressure 99/64 [Right] O2 Sat by Pulse 98 99 99 Oximetry - Reevaluation(s) Reevaluation #1: 01/18/17 02:42 Differential diagnosis, including but not limited to: Suicidality, overdose, depression, medical clearance for psychiatric placement Assessment and plan: 26-year-old male with depression and suicidality. Patient clinically sober, walks with a steady gait, has a GCS of 15, with an NIH score of 0. Patient is placed on a 1013. Patient reports she is not taking lithium and valproic acid. Laboratory studies reviewed; they are unremarkable. Laboratory studies have been added on; creatinine kinase, acetaminophen, salicylates. We will discussed with crisis/mental health once his laboratories have been resulted. Reevaluation #2: 01/18/17 03:49 Serum toxicology studies unremarkable. At this point in time, that is not appeared to be an immediate medical contraindication to psychiatric admission/ evaluation and consultation. ED Medical Decision Making - Lab Data Result diagrams: 01/17/17 17:25 01/17/17 17:25 Vital Signs 01/17/17 01/17/17 01/18/17 17:18 20:55 01:51 Temperature 97.7 F 98.2 F 97.6 F Pulse Rate 71 78 64 Respiratory 18 16 16 Rate Blood Pressure 131/70 128/76 Blood Pressure 99/64 [Right] O2 Sat by Pulse 98 99 99 Oximetry Lab Results 01/17/17 01/17/17 01/17/17 Range/Units 17:25 17:25 17:25 WBC 7.1 (4.5-11.0) K/mm3 RBC 4.63 (3.65-5.03) M/mm3 Hgb 15.3 H (11.8-15.2) gm/dl Hct 43.4 (35.5-45.6) % MCV 94 (84-94) fl MCH 33 H (28-32) pg MCHC 35 H (32-34) % RDW 12.9 L (13.2-15.2) % Plt Count 177 (140-440) K/mm3 Lymph % (Auto) 40.2 H (13.4-35.0) % [place] % (Auto) 8.3 H (0.0-7.3) % Eos % (Auto) 3.1 (0.0-4.3) % Baso % (Auto) 0.7 (0.0-1.8) % Lymph # 2.9 (1.2-5.4) K/mm3 [place] # 0.6 (0.0-0.8) K/mm3 Eos # 0.2 (0.0-0.4) K/mm3 Baso # 0.0 (0.0-0.1) K/mm3 Seg Neutrophils % 47.7 (40.0-70.0) % Seg Neutrophils # 3.4 (1.8-7.7) K/mm3 Sodium 143 (137-145) mmol/L Potassium 4.3 (3.6-5.0) mmol/L Chloride 104.0 (98-107) mmol/L Carbon Dioxide 27 (22-30) mmol/L Anion Gap 16 mmol/L BUN 7 L (9-20) mg/dL Creatinine 0.7 L (0.8-1.5) mg/dL Estimated GFR > 60 ml/min BUN/Creatinine Ratio 10 % Glucose 116 H (75-100) mg/dL Calcium 9.5 (8.4-10.2) mg/dL Urine Color (Yellow) Urine Turbidity (Clear) Urine pH (5.0-7.0) Ur Specific [place] (1.003-1.030) Urine Protein (Negative) mg/dL Urine Glucose (UA) (Negative) mg/dL Urine Ketones (Negative) mg/dL Urine Blood (Negative) Urine Nitrite (Negative) Urine Bilirubin (Negative) Urine Urobilinogen (<2.0) mg/dL Ur Leukocyte Esterase (Negative) Urine WBC (Auto) (0.0-6.0) /HPF Urine RBC (Auto) (0.0-6.0) /HPF Amorphous Crystals Urine Mucus /HPF Urine Opiates Screen Urine Methadone Screen Ur Barbiturates Screen Ur Phencyclidine Scrn Ur Amphetamines Screen U Benzodiazepines Scrn Urine Cocaine Screen U Marijuana (THC) Screen Drugs of Abuse Note Plasma/Serum Alcohol < 0.01 (0-0.07) gm% 01/17/17 01/17/17 Range/Units 20:15 20:15 WBC (4.5-11.0) K/mm3 RBC (3.65-5.03) M/mm3 Hgb (11.8-15.2) gm/dl Hct (35.5-45.6) % MCV (84-94) fl MCH (28-32) pg MCHC (32-34) % RDW (13.2-15.2) % Plt Count (140-440) K/mm3 Lymph % (Auto) (13.4-35.0) % [place] % (Auto) (0.0-7.3) % Eos % (Auto) (0.0-4.3) % Baso % (Auto) (0.0-1.8) % Lymph # (1.2-5.4) K/mm3 [place] # (0.0-0.8) K/mm3 Eos # (0.0-0.4) K/mm3 Baso # (0.0-0.1) K/mm3 Seg Neutrophils % (40.0-70.0) % Seg Neutrophils # (1.8-7.7) K/mm3 Sodium (137-145) mmol/L Potassium (3.6-5.0) mmol/L Chloride (98-107) mmol/L Carbon Dioxide (22-30) mmol/L Anion Gap mmol/L BUN (9-20) mg/dL Creatinine (0.8-1.5) mg/dL Estimated GFR ml/min BUN/Creatinine Ratio % Glucose (75-100) mg/dL Calcium (8.4-10.2) mg/dL Urine Color Yellow (Yellow) Urine Turbidity Clear (Clear) Urine pH 7.0 (5.0-7.0) Ur Specific [place] 1.012 (1.003-1.030) Urine Protein <15 mg/dl (Negative) mg/dL Urine Glucose (UA) Neg (Negative) mg/dL Urine Ketones Neg (Negative) mg/dL Urine Blood Neg (Negative) Urine Nitrite Neg (Negative) Urine Bilirubin Neg (Negative) Urine Urobilinogen < 2.0 (<2.0) mg/dL Ur Leukocyte Esterase Neg (Negative) Urine WBC (Auto) 1.0 (0.0-6.0) /HPF Urine RBC (Auto) < 1.0 (0.0-6.0) /HPF Amorphous Crystals Few Urine Mucus Few /HPF Urine Opiates Screen Presumptive negative Urine Methadone Screen Presumptive negative Ur Barbiturates Screen Presumptive negative Ur Phencyclidine Scrn Presumptive negative Ur Amphetamines Screen Presumptive negative U Benzodiazepines Scrn Presumptive negative Urine Cocaine Screen Presumptive negative U Marijuana (THC) Screen Presumptive negative Drugs of Abuse Note Disclamer Plasma/Serum Alcohol (0-0.07) gm% Critical care attestation.: If time is entered above; I have spent that time in minutes in the direct care of this critically ill patient, excluding procedure time. ED Disposition Clinical Impression: Medical clearance for psychiatric admission Disposition: DC/TX-65 PSY HOSP/PSY UNIT Is pt being admited?: No Does the pt Need Aspirin: No Condition: Stable Referrals: PRIMARY CARE, [Primary Care Provider] - 3-5 Days
--- NOTE | 2017-01-18 18:32 | Consultation ---
History of Present Illness - Reason for Consult Consult date: 01/18/17 Reason for consult: psychiatric evaluation - Chief Complaint Chief complaint: " Someone was popping me." - History of Present Psychiatric Illness This is a 26-year-old male seen in the ER for psychiatric evaluation. He states he brought himself to the hospital because "someone was popping me; I felt threatened." The record indicates he had a complaint of suicidality without plan. The record indicates a history of schizophrenia. Several visits for mental health are documented over the past year. His urine drug screen & ETOH are negative. He is disorganized and unable to provide further information. No manic symptoms present. Medications and Allergies Allergies Allergy/AdvReac Type Severity Reaction Status Date / Time quetiapine fumarate Allergy Unknown Verified 12/09/16 20:02 [From Seroamcurel] Home Medications Medication Instructions Recorded Confirmed Last Taken Type chlorproMAZINE [Thorazine] 50 mg PO TID 12/30/16 12/30/16 Unknown History Active Meds: Active Medications Haloperidol Lactate (Haldol) 5 mg IM Q6HR PRN PRN Reason: Agitation Lorazepam (Ativan) 2 mg IM Q4HR PRN PRN Reason: Agitation Risperidone (Risperdal) 1 mg PO HS [facility] Past psychiatric history - Past Medical History Past Medical History: other (none known) - past Psychiatric treatment and history Psych: Schizophrenia - Social History Social history: other (unk) Mental Status Exam - Vital signs Last Vital Signs Temp 98.2 F 01/18/17 18:22 Pulse 64 01/18/17 18:22 Resp 16 01/18/17 18:22 BP 117/63 01/18/17 18:22 Pulse Ox 96 01/18/17 18:22 - Exam Orientation: place, person Affect: anxious Mood: congruent with affect Thought content: paranoia, other (suicidal ideation) Thought Process: Disorganized Perceptions: other (unable to assess) Speech: normal rate and pattern Concentration: unable to pay attention Motor activity: normal Level of consciousness: alert Sleep Symptoms: None (unable to assess) Interaction: cooperative Results Result Diagrams: 01/17/17 17:25 01/17/17 17:25 Abnormal lab results 01/18/17 Range/Units 00:01 Salicylates < 0.3 L (2.8-20.0) mg/dL All other labs normal. Assessment and Plan Assessment and plan: Impression: disorganized and reported to have expressed suicidal ideation. Paranoia is present. He is unable to care for himself. schizophrenia by history. Compliance with medications is unknown. He is unable to provide history. Recommendation: 1013 and transfer to inpatient psychiatric facility Start Risperdal 1mg hs for psychosis and increase as tolerated.
[2017-01-18 20:34] VITALS: BP 103/50
[2017-01-18] MEDS ORDERED: RisperDAL PO SCH (22:00)
== END 2017-01-19 06:29 ==
LOC: ED 16:50
DX: R45.851 Suicidal ideations (principal); F17.200 Nicotine dependence, unspecified, uncomplicated
CPT/HCPCS: 36415; 80048; 80307; 81001; 82550; 85025; 99285; G0480; 80320

== ENCOUNTER 2017-04-04 02:40 | Emergency (ER) | payer MEDICARE ==
[2017-04-04 02:53] VITALS: BP 123/71
[2017-04-04 03:36] LABS: Basophils % (Auto) 0.2 % (0.0-1.8); Eosinophils # (Auto) 0.1 K/mm3 (0.0-0.4); Eosinophils % (Auto) 1.4 % (0.0-4.3); Hematocrit 41.8 % (35.5-45.6); Hemoglobin 14.9 gm/dl (11.8-15.2); Lymphocytes # (Auto) 2.7 K/mm3 (1.2-5.4); Lymphocytes % (Auto) 27.9 % (13.4-35.0); Mean Corpuscular HGB Conc 36 % (32-34); Mean Corpuscular Hemoglobin 34 pg (28-32); Mean Corpuscular Volume 94 fl (84-94); Monocytes % (Auto) 10.1 % (0.0-7.3); Platelet Count 163 K/mm3 (140-440); Red Blood Count 4.44 M/mm3 (3.65-5.03); Red Cell Distribution Width 12.4 % (13.2-15.2)
[2017-04-04 03:58] LABS: BUN/Creatinine Ratio 16; Blood Urea Nitrogen 11 mg/dL (9-20); Calcium 8.9 mg/dL (8.4-10.2); Hemolysis Index 12
--- NOTE | 2017-04-04 04:09 | Emergency Department Report ---
ED Psych HPI - General Chief Complaint: Psych Stated Complaint: MH EVAL Time Seen by Provider: 04/04/17 03:15 Source: patient Mode of arrival: Ambulatory Limitations: No Limitations - History of Present Illness Initial Comments: 26-year-old male with a past medical history of suicidal ideation, bipolar, schizophrenia presents to the hospital stating that he feels bad. Patient states he is depressed. Initially patient expressed that he was homeless and just needed a place to stay. He continues to deny suicidal or homicidal ideation. He seems to prefer to sleep and annoyed with answering questions. No physical complaints reported. - Related Data Home Medications Medication Instructions Recorded Confirmed Last Taken chlorproMAZINE (NF) [Thorazine] 50 mg PO TID 12/30/16 04/04/17 Unknown Allergies Allergy/AdvReac Type Severity Reaction Status Date / Time quetiapine fumarate Allergy Unknown Verified 12/09/16 20:02 [From Seroquel] ED Review of Systems ROS: Stated complaint: EVAL Other details as noted in HPI Comment: All other systems reviewed and negative Other: Constitutional: No fevers chills Eyes: No eye pain visual changes ENT: No ear pain or throat pain Neck: Denies pain Respiratory: Denies cough wheezing shortness of breath Cardiovascular: Denies chest pain, palpitations, syncope GI: Denies abdominal pain, nausea, vomiting, diarrhea : Denies dysuria Musculoskeletal: Denies back pain Skin: Denies rash, lesions, erythema Neurologic: Denies headache, numbness, weakness Psychiatric: Denies suicidal ideation, hallucinations ED Past Medical Hx - Past Medical History Previous Medical History?: Yes Hx Psychiatric Treatment: Yes (denies, although has been hosptialized for SI in past) Additional medical history: bipolar and schizo, - Surgical History Past Surgical History?: No - Social History Smoking Status: Heavy Tobacco Smoker - Medications Home Medications: Home Medications Medication Instructions Recorded Confirmed Last Taken Type chlorproMAZINE (NF) [Thorazine] 50 mg PO TID 12/30/16 04/04/17 Unknown History ED Physical Exam - General Limitations: No Limitations - Other Other exam information: General: No limitations, patient is alert in no acute distress Head exam: Atraumatic, normocephalic Eyes exam: Normal appearance ENT: Moist mucous membrane, normal oropharynx Neck exam: Normal inspection, full range of motion Respiratory exam: Clear to auscultation bilateral, no wheezes, rales, crackles Cardiovascular: Normal rate and rhythm, normal heart sounds Abdomen: Soft, nondistended, and nontender, with normal bowel sounds, no rebound, or guarding Extremity: Full range of motion normal inspection no deformity Back: Normal Inspection, full range of motion, no tenderness Neurologic: Alert, oriented x3, cranial nerves intact, no motor or sensory deficit Psychiatric: normal affect, normal mood Skin: Warm, dry, intact ED Course Vital Signs 04/04/17 02:51 Temperature 97.9 F Pulse Rate 97 H Respiratory 18 Rate Blood Pressure 123/71 [Left] O2 Sat by Pulse 99 Oximetry ED Medical Decision Making - Lab Data Result diagrams: 04/04/17 03:27 04/04/17 03:27 Lab Results 04/04/17 04/04/17 04/04/17 Range/Units 03:05 03:05 03:27 WBC (4.5-11.0) K/mm3 RBC (3.65-5.03) M/mm3 Hgb (11.8-15.2) gm/dl Hct (35.5-45.6) % MCV (84-94) fl MCH (28-32) pg MCHC (32-34) % RDW (13.2-15.2) % Plt Count (140-440) K/mm3 Lymph % (Auto) (13.4-35.0) % Hughes % (Auto) (0.0-7.3) % Eos % (Auto) (0.0-4.3) % Baso % (Auto) (0.0-1.8) % Lymph # (1.2-5.4) K/mm3 Hughes # (0.0-0.8) K/mm3 Eos # (0.0-0.4) K/mm3 Baso # (0.0-0.1) K/mm3 Seg Neutrophils % (40.0-70.0) % Seg Neutrophils # (1.8-7.7) K/mm3 Sodium (137-145) mmol/L Potassium (3.6-5.0) mmol/L Chloride (98-107) mmol/L Carbon Dioxide (22-30) mmol/L Anion Gap mmol/L BUN (9-20) mg/dL Creatinine (0.8-1.5) mg/dL Estimated GFR ml/min BUN/Creatinine Ratio % Glucose (75-100) mg/dL Calcium (8.4-10.2) mg/dL Urine Color Yellow (Yellow) Urine Turbidity Clear (Clear) Urine pH 7.0 (5.0-7.0) Ur Specific [place] 1.015 (1.003-1.030) Urine Protein <15 mg/dl (Negative) mg/dL Urine Glucose (UA) Neg (Negative) mg/dL Urine Ketones Neg (Negative) mg/dL Urine Blood Neg (Negative) Urine Nitrite Neg (Negative) Urine Bilirubin Neg (Negative) Urine Urobilinogen 2.0 (<2.0) mg/dL Ur Leukocyte Esterase Neg (Negative) Urine WBC (Auto) < 1.0 (0.0-6.0) /HPF Urine RBC (Auto) 1.0 (0.0-6.0) /HPF Urine Mucus Few /HPF Salicylates < 0.3 L (2.8-20.0) mg/dL Urine Opiates Screen Presumptive negative Urine Methadone Screen Presumptive negative Acetaminophen (10.0-30.0) ug/mL Ur Barbiturates Screen Presumptive negative Ur Phencyclidine Scrn Presumptive negative Ur Amphetamines Screen Presumptive negative U Benzodiazepines Scrn Presumptive negative Urine Cocaine Screen Presumptive negative U Marijuana (THC) Screen Presumptive negative Plasma/Serum Alcohol (0-0.07) % 04/04/17 04/04/17 04/04/17 Range/Units 03:27 03:27 03:27 WBC (4.5-11.0) K/mm3 RBC (3.65-5.03) M/mm3 Hgb (11.8-15.2) gm/dl Hct (35.5-45.6) % MCV (84-94) fl MCH (28-32) pg MCHC (32-34) % RDW (13.2-15.2) % Plt Count (140-440) K/mm3 Lymph % (Auto) (13.4-35.0) % Hughes % (Auto) (0.0-7.3) % Eos % (Auto) (0.0-4.3) % Baso % (Auto) (0.0-1.8) % Lymph # (1.2-5.4) K/mm3 Hughes # (0.0-0.8) K/mm3 Eos # (0.0-0.4) K/mm3 Baso # (0.0-0.1) K/mm3 Seg Neutrophils % (40.0-70.0) % Seg Neutrophils # (1.8-7.7) K/mm3 Sodium 139 (137-145) mmol/L Potassium 4.1 (3.6-5.0) mmol/L Chloride 101.4 (98-107) mmol/L Carbon Dioxide 26 (22-30) mmol/L Anion Gap 16 mmol/L BUN 11 (9-20) mg/dL Creatinine 0.7 L (0.8-1.5) mg/dL Estimated GFR > 60 ml/min BUN/Creatinine Ratio 16 % Glucose 124 H (75-100) mg/dL Calcium 8.9 (8.4-10.2) mg/dL Urine Color (Yellow) Urine Turbidity (Clear) Urine pH (5.0-7.0) Ur Specific [place] (1.003-1.030) Urine Protein (Negative) mg/dL Urine Glucose (UA) (Negative) mg/dL Urine Ketones (Negative) mg/dL Urine Blood (Negative) Urine Nitrite (Negative) Urine Bilirubin (Negative) Urine Urobilinogen (<2.0) mg/dL Ur Leukocyte Esterase (Negative) Urine WBC (Auto) (0.0-6.0) /HPF Urine RBC (Auto) (0.0-6.0) /HPF Urine Mucus /HPF Salicylates (2.8-20.0) mg/dL Urine Opiates Screen Urine Methadone Screen Acetaminophen < 15.0 (10.0-30.0) ug/mL Ur Barbiturates Screen Ur Phencyclidine Scrn Ur Amphetamines Screen U Benzodiazepines Scrn Urine Cocaine Screen U Marijuana (THC) Screen Plasma/Serum Alcohol < 0.01 (0-0.07) % 04/04/17 Range/Units 03:27 WBC 9.8 (4.5-11.0) K/mm3 RBC 4.44 (3.65-5.03) M/mm3 Hgb 14.9 (11.8-15.2) gm/dl Hct 41.8 (35.5-45.6) % MCV 94 (84-94) fl MCH 34 H (28-32) pg MCHC 36 H (32-34) % RDW 12.4 L (13.2-15.2) % Plt Count 163 (140-440) K/mm3 Lymph % (Auto) 27.9 (13.4-35.0) % Hughes % (Auto) 10.1 H (0.0-7.3) % Eos % (Auto) 1.4 (0.0-4.3) % Baso % (Auto) 0.2 (0.0-1.8) % Lymph # 2.7 (1.2-5.4) K/mm3 Hughes # 1.0 H (0.0-0.8) K/mm3 Eos # 0.1 (0.0-0.4) K/mm3 Baso # 0.0 (0.0-0.1) K/mm3 Seg Neutrophils % 60.4 (40.0-70.0) % Seg Neutrophils # 5.9 (1.8-7.7) K/mm3 Sodium (137-145) mmol/L Potassium (3.6-5.0) mmol/L Chloride (98-107) mmol/L Carbon Dioxide (22-30) mmol/L Anion Gap mmol/L BUN (9-20) mg/dL Creatinine (0.8-1.5) mg/dL Estimated GFR ml/min BUN/Creatinine Ratio % Glucose (75-100) mg/dL Calcium (8.4-10.2) mg/dL Urine Color (Yellow) Urine Turbidity (Clear) Urine pH (5.0-7.0) Ur Specific [place] (1.003-1.030) Urine Protein (Negative) mg/dL Urine Glucose (UA) (Negative) mg/dL Urine Ketones (Negative) mg/dL Urine Blood (Negative) Urine Nitrite (Negative) Urine Bilirubin (Negative) Urine Urobilinogen (<2.0) mg/dL Ur Leukocyte Esterase (Negative) Urine WBC (Auto) (0.0-6.0) /HPF Urine RBC (Auto) (0.0-6.0) /HPF Urine Mucus /HPF Salicylates (2.8-20.0) mg/dL Urine Opiates Screen Urine Methadone Screen Acetaminophen (10.0-30.0) ug/mL Ur Barbiturates Screen Ur Phencyclidine Scrn Ur Amphetamines Screen U Benzodiazepines Scrn Urine Cocaine Screen U Marijuana (THC) Screen Plasma/Serum Alcohol (0-0.07) % - Medical Decision Making Patient apparently expressed that he was homeless and needed a place to stay. Patient has several hospital bands on his wrists upon arrival and apparently was recently discharged from another facility. Patient is not completely cooperative HPI. There is no medical emergency psychiatric reason or his stay today. He will be discharged - Differential Diagnosis suicidal, homicidal, depressed, schizophrenia Critical Care Time: No Critical care attestation.: If time is entered above; I have spent that time in minutes in the direct care of this critically ill patient, excluding procedure time. ED Disposition Clinical Impression: Homeless, Bipolar disorder, Schizophrenia Disposition: DC-01 TO HOME OR SELFCARE Is pt being admited?: No Does the pt Need Aspirin: No Condition: Stable Instructions: Bipolar Disorder (ED), Schizophrenia (ED) Referrals: [facility] [Outside] - 3-5 Days MD Mario [Other] - 3-5 Days Time of Disposition: 04:43
[2017-04-04 04:28] LABS: Bilirubin,Urine NEG (Negative); Blood,Urine NEG (Negative); Color,Urine Yellow (Yellow); Mucus,Urine FEW /HPF; Protein,Urine <15 mg/dL mg/dL (Negative); WBC,Urine < 1.0 /HPF (0.0-6.0)
[2017-04-04 04:36] LABS: Amphetamine Screen,Urine PRESUMPTIVE NEGATIVE; Benzodiazepines Screen,Urine PRESUMPTIVE NEGATIVE; Cannabinoid Screen,Urine PRESUMPTIVE NEGATIVE; Cocaine Screen,Urine PRESUMPTIVE NEGATIVE; Methadone Screen,Urine PRESUMPTIVE NEGATIVE; Opiate Screen,Urine PRESUMPTIVE NEGATIVE
== END 2017-04-04 05:49 | disposition home or self-care (01) ==
LOC: ED 02:40 → EEVIPCON 02:40 → ED 05:49
DX: F31.9 Bipolar disorder, unspecified (principal); F20.9 Schizophrenia, unspecified; Z59.0 Homelessness; F17.200 Nicotine dependence, unspecified, uncomplicated
CPT/HCPCS: 36415; 80048; 80307; 81001; 85025; 99283; G0480; 80320

== ENCOUNTER 2017-04-04 08:01 | Emergency (ER) | payer MEDICARE ==
[2017-04-04 09:02] LABS: Bilirubin,Urine NEG (Negative); Blood,Urine NEG (Negative); Color,Urine Yellow (Yellow); Protein,Urine <15 mg/dL mg/dL (Negative)
[2017-04-04 09:05] LABS: Basophils % (Auto) 0.2 % (0.0-1.8); Eosinophils # (Auto) 0.1 K/mm3 (0.0-0.4); Eosinophils % (Auto) 1.4 % (0.0-4.3); Lymphocytes # (Auto) 2.9 K/mm3 (1.2-5.4); Lymphocytes % (Auto) 30.9 % (13.4-35.0); Mean Corpuscular HGB Conc 36 % (32-34); Mean Corpuscular Hemoglobin 34 pg (28-32); Mean Corpuscular Volume 94 fl (84-94); Monocytes % (Auto) 10.3 % (0.0-7.3); Platelet Count 174 K/mm3 (140-440); Red Blood Count 4.68 M/mm3 (3.65-5.03); Red Cell Distribution Width 12.6 % (13.2-15.2)
[2017-04-04 09:09] LABS: Hematocrit 43.9 % (35.5-45.6); Hemoglobin 15.7 gm/dl (11.8-15.2)
[2017-04-04 09:10] LABS: Amphetamine Screen,Urine PRESUMPTIVE NEGATIVE; Benzodiazepines Screen,Urine PRESUMPTIVE NEGATIVE; Cannabinoid Screen,Urine PRESUMPTIVE NEGATIVE; Cocaine Screen,Urine PRESUMPTIVE NEGATIVE; Methadone Screen,Urine PRESUMPTIVE NEGATIVE; Opiate Screen,Urine PRESUMPTIVE NEGATIVE
[2017-04-04 09:10] LABS: BUN/Creatinine Ratio 16; Blood Urea Nitrogen 11 mg/dL (9-20); Calcium 9.1 mg/dL (8.4-10.2); Hemolysis Index 24
--- NOTE | 2017-04-04 09:27 | Emergency Department Report ---
HPI - General Chief Complaint: Psych Time Seen by Provider: 04/04/17 09:10 - HPI HPI: Room 9 The patient is a 26-year-old male presenting with chief complaint of schizophrenia/suicidal ideation. The patient is a very poor historian. Sometimes the patient's answers appear unrelated to the questions proposed. The patient acknowledges suicidal ideation since age 12. When asked if he has a plan regarding his suicidal ideation the patient replies "maybe I'm having trouble relating customer ideas and stuff." Location: Mental state Duration: [See above] Quality: Suicidal Severity: Severe Modifying factors: [see above] Context: [see above] Mode of transportation: [not driving] ED Past Medical Hx - Past Medical History Previous Medical History?: No Hx Psychiatric Treatment: Yes (denies, although has been hosptialized for SI in past) Additional medical history: bipolar and schizophrenia - Surgical History Past Surgical History?: No - Family History Family history: no significant - Social History Smoking Status: Current Every Day Smoker Substance Use Type: Alcohol - Medications Home Medications: Home Medications Medication Instructions Recorded Confirmed Last Taken Type chlorproMAZINE (NF) [Thorazine] 50 mg PO TID 12/30/16 04/04/17 Unknown History ED Review of Systems ROS: Stated complaint: MENTAL HEALTH EVALUATION Other details as noted in HPI Psychiatric: suicidal thoughts Physical Exam - Physical Exam Vital Signs: Vital Signs 04/04/17 04/04/17 04/04/17 08:09 08:13 09:11 Temperature 98 F 98.0 F Pulse Rate 78 78 Respiratory 18 16 18 Rate Blood Pressure 137/88 Blood Pressure 137/88 [Left] O2 Sat by Pulse 97 97 100 Oximetry Physical Exam: GENERAL: The patient is well-developed well-nourished male lying on stretcher not appearing to be in acute distress HEENT: Normocephalic. Atraumatic. Extraocular motions are intact. Patient has moist mucous membranes. NECK: Supple. Trachea midline CHEST/LUNGS: Clear to auscultation. There is no respiratory distress noted. HEART/CARDIOVASCULAR: Regular. There is no tachycardia. There is no gallop rub or murmur. ABDOMEN: Abdomen is soft, nontender. Patient has normal bowel sounds. There is no abdominal distention. SKIN: There is no rash. There is no edema. There is no diaphoresis. NEURO: The patient is awake and alert. The patient is cooperative. The patient has normal speech MUSCULOSKELETAL: There is no evidence of acute injury. ED Course Vital Signs 04/04/17 04/04/17 04/04/17 08:09 08:13 09:11 Temperature 98 F 98.0 F Pulse Rate 78 78 Respiratory 18 16 18 Rate Blood Pressure 137/88 Blood Pressure 137/88 [Left] O2 Sat by Pulse 97 97 100 Oximetry ED Medical Decision Making - Lab Data Result diagrams: 04/04/17 08:32 04/04/17 08:32 Laboratory Tests 04/04/17 04/04/17 04/04/17 08:32 08:32 08:32 WBC RBC Hgb Hct MCV MCH MCHC RDW Plt Count Lymph % (Auto) [place] % (Auto) Eos % (Auto) Baso % (Auto) Lymph # [place] # Eos # Baso # Seg Neutrophils % Seg Neutrophils # Sodium 136 L Potassium 3.9 Chloride 99.8 Carbon Dioxide 22 Anion Gap 18 BUN 11 Creatinine 0.7 L Estimated GFR > 60 BUN/Creatinine Ratio 16 Glucose 85 Calcium 9.1 Urine Color Urine Turbidity Urine pH Ur Specific [place] Urine Protein Urine Glucose (UA) Urine Ketones Urine Blood Urine Nitrite Urine Bilirubin Urine Urobilinogen Ur Leukocyte Esterase Urine WBC (Auto) Urine RBC (Auto) Salicylates < 0.3 L Urine Opiates Screen Urine Methadone Screen Acetaminophen < 15.0 Ur Barbiturates Screen Ur Phencyclidine Scrn Ur Amphetamines Screen U Benzodiazepines Scrn Urine Cocaine Screen U Marijuana (THC) Screen Drugs of Abuse Note Plasma/Serum Alcohol 04/04/17 04/04/17 04/04/17 08:32 08:32 Unknown WBC 9.4 RBC 4.68 Hgb 15.7 H Hct 43.9 MCV 94 MCH 34 H MCHC 36 H RDW 12.6 L Plt Count 174 Lymph % (Auto) 30.9 [place] % (Auto) 10.3 H Eos % (Auto) 1.4 Baso % (Auto) 0.2 Lymph # 2.9 [place] # 1.0 H Eos # 0.1 Baso # 0.0 Seg Neutrophils % 57.2 Seg Neutrophils # 5.4 Sodium Potassium Chloride Carbon Dioxide Anion Gap BUN Creatinine Estimated GFR BUN/Creatinine Ratio Glucose Calcium Urine Color Yellow Urine Turbidity Clear Urine pH 7.0 Ur Specific [place] 1.020 Urine Protein <15 mg/dl Urine Glucose (UA) Neg Urine Ketones Neg Urine Blood Neg Urine Nitrite Neg Urine Bilirubin Neg Urine Urobilinogen 2.0 Ur Leukocyte Esterase Neg Urine WBC (Auto) 1.0 Urine RBC (Auto) 1.0 Salicylates Urine Opiates Screen Urine Methadone Screen Acetaminophen Ur Barbiturates Screen Ur Phencyclidine Scrn Ur Amphetamines Screen U Benzodiazepines Scrn Urine Cocaine Screen U Marijuana (THC) Screen Drugs of Abuse Note Plasma/Serum Alcohol < 0.01 04/04/17 Unknown WBC RBC Hgb Hct MCV MCH MCHC RDW Plt Count Lymph % (Auto) [place] % (Auto) Eos % (Auto) Baso % (Auto) Lymph # [place] # Eos # Baso # Seg Neutrophils % Seg Neutrophils # Sodium Potassium Chloride Carbon Dioxide Anion Gap BUN Creatinine Estimated GFR BUN/Creatinine Ratio Glucose Calcium Urine Color Urine Turbidity Urine pH Ur Specific [place] Urine Protein Urine Glucose (UA) Urine Ketones Urine Blood Urine Nitrite Urine Bilirubin Urine Urobilinogen Ur Leukocyte Esterase Urine WBC (Auto) Urine RBC (Auto) Salicylates Urine Opiates Screen Presumptive negative Urine Methadone Screen Presumptive negative Acetaminophen Ur Barbiturates Screen Presumptive negative Ur Phencyclidine Scrn Presumptive negative Ur Amphetamines Screen Presumptive negative U Benzodiazepines Scrn Presumptive negative Urine Cocaine Screen Presumptive negative U Marijuana (THC) Screen Presumptive negative Drugs of Abuse Note Disclamer Plasma/Serum Alcohol - Differential Diagnosis schizophrenia, suicidal ideation Critical care attestation.: If time is entered above; I have spent that time in minutes in the direct care of this critically ill patient, excluding procedure time. ED Disposition Clinical Impression: Schizophrenia, Suicidal ideation Disposition: DC/TX-65 PSY HOSP/PSY UNIT Is pt being admited?: No Does the pt Need Aspirin: No Condition: Serious Referrals: PRIMARY CARE, [Primary Care Provider] - 3-5 Days Time of Disposition: 09:28 (awaiting acceptance)
[2017-04-04 17:20] VITALS: BP 137/69
== END 2017-04-04 19:25 ==
LOC: ED 08:01
DX: F20.9 Schizophrenia, unspecified (principal); R45.851 Suicidal ideations; F17.200 Nicotine dependence, unspecified, uncomplicated; F31.9 Bipolar disorder, unspecified
CPT/HCPCS: 36415; 80048; 80307; 81001; 85025; 99285; G0480; 80320

== ENCOUNTER 2018-04-16 20:54 | Emergency (ER) | payer MEDICARE ==
[2018-04-16] MEDS ORDERED: ATIVAN IM PRN (23:49)
[2018-04-16] MEDS ORDERED: HALDOL IM PRN (23:49)
--- NOTE | 2018-04-16 23:50 | Emergency Department Report ---
ED General Adult HPI - General Chief complaint: Psych Stated complaint: MH Time Seen by Provider: 04/16/18 23:39 Source: patient Mode of arrival: Ambulatory Limitations: No Limitations, Other (patient is a poor historian) - History of Present Illness Initial comments: This is a 27-year-old gentleman who is brought to the hospital for psychiatric evaluation. The patient endorses no complaints to this provider. He denies physical pain. He is elusive regarding questions about homicidality, suicidality and access to guns, firearms. He denies overdose. At one point in time, on his triage, he made a complaint about feeling suicidal. Next -: unknown Severity scale (0 -10): 0 Improves with: none Worsens with: none - Related Data Home Medications Medication Instructions Recorded Confirmed Last Taken chlorproMAZINE (NF) [Thorazine] 50 mg PO TID 12/30/16 04/04/17 Unknown Allergies Allergy/AdvReac Type Severity Reaction Status Date / Time quetiapine fumarate Allergy Unknown Verified 04/16/18 21:57 [From Seroquel] ED Review of Systems ROS: Stated complaint: MH Other details as noted in HPI Constitutional: denies: fever Eyes: denies: vision change ENT: denies: epistaxis Respiratory: denies: cough Cardiovascular: denies: chest pain Gastrointestinal: denies: abdominal pain Genitourinary: denies: dysuria Musculoskeletal: denies: back pain Skin: denies: lesions Neurological: weakness Psychiatric: depression ED Past Medical Hx - Past Medical History Hx Psychiatric Treatment: Yes (denies, although has been hosptialized for SI in past) Additional medical history: bipolar and schizophrenia - Social History Smoking Status: Current Every Day Smoker Substance Use Type: Alcohol, Marijuana - Medications Home Medications: Home Medications Medication Instructions Recorded Confirmed Last Taken Type chlorproMAZINE (NF) [Thorazine] 50 mg PO TID 12/30/16 04/04/17 Unknown History ED Physical Exam - General Limitations: No Limitations General appearance: alert, in no apparent distress - Head Head exam: Present: atraumatic, normocephalic - Eye Eye exam: Present: normal appearance, EOMI. Absent: nystagmus - ENT ENT exam: Present: normal exam, normal orophraynx, mucous membranes moist, normal external ear exam - Neck Neck exam: Present: normal inspection, full ROM. Absent: tenderness, meni ngismus - Respiratory Respiratory exam: Present: normal lung sounds bilaterally. Absent: respiratory distress, wheezes, rales, rhonchi, stridor - Cardiovascular Cardiovascular Exam: Present: normal rhythm, tachycardia, normal heart sounds. Absent: systolic murmur, diastolic murmur, rubs, gallop - GI/Abdominal GI/Abdominal exam: Present: soft. Absent: distended, tenderness, guarding, rebound, rigid, pulsatile mass - Rectal Rectal exam: Present: deferred - Extremities Exam Extremities exam: Present: normal inspection, full ROM, other (2+ pulses noted in the bilateral upper, lower extremities. Compartments soft. No long bony tenderness. The pelvis is stable.). Absent: pedal edema, joint swelling, calf tenderness - Back Exam Back exam: Present: normal inspection, full ROM. Absent: tenderness, CVA tenderness (R), paraspinal tenderness, vertebral tenderness - Neurological Exam Neurological exam: Present: alert, CN II-XII intact, normal gait, other (Extraocular movements intact. Tongue midline. No facial droop. Facial sensation intact to light touch in the V1, V2, V3 distribution bilaterally. 5 and 5 strength in 4 extremities.. Sensation is intact to light touch in 4 extremities.). Absent: motor sensory deficit - Psychiatric Psychiatric exam: Present: anxious - Skin Skin exam: Present: warm, dry, intact, normal color. Absent: rash ED Course Vital Signs 04/16/18 21:49 Temperature 98.1 F Pulse Rate 117 H Respiratory 18 Rate Blood Pressure 140/92 O2 Sat by Pulse 98 Oximetry - Reevaluation(s) Reevaluation #1: 04/17/18 01:12 Differential diagnosis, including not limited to: Depression, suicidality, psychosis, medical clearance for psychiatric placement Assessment and plan: 27-year-old gentleman who is in door suicidality, appears to be disorganized, psychotic, based on a 1013 for all of the above and inabil ity to care for self. Physical examination unremarkable, tachycardia improved, screening laboratory studies unremarkable so far, a psychiatric consultation has been requested. Reevaluation #2: 04/17/18 02:52 Vital signs remained stable. Patient walking around his room with no acute distress. Screening laboratory studies unremarkable. Patient is medically suitable at this point in time for psychiatric consultation, evaluation and placement. ED Medical Decision Making - Lab Data Result diagrams: 04/16/18 23:57 04/16/18 23:57 Vital Signs 04/16/18 21:49 Temperature 98.1 F Pulse Rate 117 H Respiratory 18 Rate Blood Pressure 140/92 O2 Sat by Pulse 98 Oximetry Lab Results 04/16/18 04/16/18 Range/Units 23:57 23:57 WBC 10.8 (4.5-11.0) K/mm3 RBC 4.42 (3.65-5.03) M/mm3 Hgb 14.4 (11.8-15.2) gm/dl Hct 40.5 (35.5-45.6) % MCV 92 (84-94) fl MCH 33 H (28-32) pg MCHC 36 H (32-34) % RDW 12.8 L (13.2-15.2) % Plt Count 188 (140-440) K/mm3 Sodium 138 (137-145) mmol/L Potassium 3.6 (3.6-5.0) mmol/L Chloride 99.7 (98-107) mmol/L Carbon Dioxide 26 (22-30) mmol/L Anion Gap 16 mmol/L BUN 4 L (9-20) mg/dL Creatinine 0.7 L (0.8-1.5) mg/dL Estimated GFR > 60 ml/min BUN/Creatinine Ratio 6 % Glucose 111 H (75-100) mg/dL Calcium 9.2 (8.4-10.2) mg/dL Total Creatine Kinase 295 H (55-170) units/L Critical care attestation.: If time is entered above; I have spent that time in minutes in the direct care of this critically ill patient, excluding procedure time. ED Disposition Clinical Impression: Medical clearance for psychiatric admission Disposition: DC/TX-65 PSY HOSP/PSY UNIT Is pt being admited?: No Does the pt Need Aspirin: No Condition: Good Referrals: ISRAEL KOHLI MD [Primary Care Provider] - 3-5 Days
[2018-04-17 00:16] LABS: Hematocrit 40.5 % (35.5-45.6); Hemoglobin 14.4 gm/dl (11.8-15.2); Mean Corpuscular HGB Conc 36 % (32-34); Mean Corpuscular Volume 92 fl (84-94); Platelet Count 188 K/mm3 (140-440); Red Blood Count 4.42 M/mm3 (3.65-5.03); Red Cell Distribution Width 12.8 % (13.2-15.2)
[2018-04-17 00:44] LABS: BUN/Creatinine Ratio 6; Blood Urea Nitrogen 4 mg/dL (9-20); Calcium 9.2 mg/dL (8.4-10.2); Hemolysis Index 57
[2018-04-17 01:13] LABS: Bilirubin,Urine NEG (Negative); Blood,Urine NEG (Negative); Color,Urine Yellow (Yellow); Protein,Urine <15 mg/dL mg/dL (Negative); RBC,Urine < 1.0 /HPF (0.0-6.0); Urobilinogen,Urine < 2.0 mg/dL (<2.0); WBC,Urine < 1.0 /HPF (0.0-6.0)
[2018-04-17 01:35] LABS: Amphetamine Screen,Urine PRESUMPTIVE NEGATIVE; Benzodiazepines Screen,Urine PRESUMPTIVE NEGATIVE; Cannabinoid Screen,Urine PRESUMPTIVE NEGATIVE; Cocaine Screen,Urine PRESUMPTIVE NEGATIVE; Methadone Screen,Urine PRESUMPTIVE NEGATIVE; Opiate Screen,Urine PRESUMPTIVE NEGATIVE
[2018-04-17 16:10] VITALS: BP 128/91
== END 2018-04-17 19:45 ==
LOC: ED 20:54
DX: F31.9 Bipolar disorder, unspecified (principal); F20.9 Schizophrenia, unspecified; F17.200 Nicotine dependence, unspecified, uncomplicated; F12.10 Cannabis abuse, uncomplicated; Z79.899 Other long term (current) drug therapy; Z88.8 Allergy status to other drugs, medicaments and biological substances
CPT/HCPCS: 36415; 80048; 80307; 81001; 82550; 85027; 96372; 99285; G0480; J2060; 80320

== ENCOUNTER 2018-05-22 18:03 | Emergency (ER) | payer MEDICARE ==
--- NOTE | 2018-05-22 18:15 | Emergency Department Report ---
Blank Doc - Documentation Documentation: 27 year old male presents to Ed cc of testicular swelling and bilateral feet p ain [facility]
[2018-05-23] MEDS ORDERED: HALDOL IM PRN (01:09)
[2018-05-23] MEDS ORDERED: ATIVAN IM PRN (01:09)
--- NOTE | 2018-05-23 01:14 | Emergency Department Report ---
ED General Adult HPI - General Chief complaint: Urogenital-Male Stated complaint: TESTICAL PAIN Time Seen by Provider: 05/22/18 18:10 Source: patient, EMS (ems notes not available at time of chart dictation), RN notes reviewed, old records reviewed Mode of arrival: Stretcher Limitations: Altered Mental Status, Other (psychotic, disorganized) - History of Present Illness Initial comments: This is a 27-year-old gentleman whom I evaluated the past. His past medical history includes homelessness, and psychosis. He currently has a history of bipolar and schizophrenia. The patient presents to the emergency room today with EMS apparently. Initially, on my first evaluation, the patient is sleeping. He then complains of nontraumatic left-sided hand pain. He then states that he is not having hand pain. He then states he hasn't had any trauma. The patient is confused at this time. He apparently one point complained of testicular pain. When I asked him if he was having any pain, he said no. Then he said that his testicles were hurting him, and that they might hurt him in the future. The patient is disorganized, he is a poor historian, he is not able to describe exacerbating or relieving factors, qualitative nature of his symptoms, or radiation. There is no family available at this time for collateral information. There are no friends at this time available for collateral information. -: unknown Location: genitals, left, upper extremity Quality: other Consistency: other Improves with: other Worsens with: other - Related Data Home Medications Medication Instructions Recorded Confirmed Last Taken chlorproMAZINE (NF) [Thorazine] 50 mg PO TID 12/30/16 04/04/17 Unknown Allergies Allergy/AdvReac Type Severity Reaction Status Date / Time quetiapine fumarate Allergy Unknown Verified 04/16/18 21:57 [From Seroquel] ED Review of Systems ROS: Stated complaint: TESTICAL PAIN Other details as noted in HPI Comment: Unobtainable due to pts medical conditions Constitutional: denies: fever Respiratory: denies: cough Cardiovascular: denies: chest pain Gastrointestinal: denies: abdominal pain Genitourinary: testicular pain Musculoskeletal: arthralgia Neurological: confusion ED Past Medical Hx - Past Medical History Hx Psychiatric Treatment: Yes (bipolar, schizophrenia) Additional medical history: bipolar and schizophrenia - Surgical History Past Surgical History?: No - Social History Smoking Status: Never Smoker Substance Use Type: None - Medications Home Medications: Home Medications Medication Instructions Recorded Confirmed Last Taken Type chlorproMAZINE (NF) [Thorazine] 50 mg PO TID 12/30/16 04/04/17 Unknown History ED Physical Exam - General Limitations: Other (disorganized, psychotic, poor historian) General appearance: anxious - Head Head exam: Present: atraumatic, normocephalic - Eye Eye exam: Present: normal appearance, PERRL, EOMI, other (visual acuity intact to finger counting, color perception). Absent: nystagmus - ENT ENT exam: Present: normal exam, normal orophraynx, mucous membranes moist, normal external ear exam - Neck Neck exam: Present: normal inspection, full ROM. Absent: tenderness, meningismus - Respiratory Respiratory exam: Present: normal lung sounds bilaterally. Absent: respiratory distress - Cardiovascular Cardiovascular Exam: Present: normal rhythm, tachycardia, normal heart sounds. Absent: systolic murmur, diastolic murmur, rubs, gallop - GI/Abdominal GI/Abdominal exam: Present: soft. Absent: distended, tenderness, rebound, rigid, pulsatile mass - Rectal Rectal exam: Present: deferred - exam: Present: normal inspection, other (chaperoned by nurse Blanca PERSAUD). Absent: testicular tenderness External exam: Present: normal external exam, other (there is no testicular tenderness. There is normal testicular lie bilaterally. There is normal cremasteric reflex bilaterally.) - Extremities Exam Extremities exam: Present: normal inspection, full ROM, other (2+ pulses noted in the bilateral upper, lower extremities. Compartments soft. No long bony tenderness. The pelvis is stable.). Absent: pedal edema, joint swelling, calf tenderness - Back Exam Back exam: Present: normal inspection, full ROM. Absent: tenderness, CVA tenderness (R), paraspinal tenderness, vertebral tenderness - Neurological Exam Neurological exam: Present: altered (alert to name. Follows commands. 5 out of 5 strength in 4 extremities. There is no facial droop. The tongue is midline. Extraocular movements are intact. Detailed neurologic examination not possible secondary to psychosis, altered mental status) - Psychiatric Psychiatric exam: Present: anxious, flat affect - Skin Skin exam: Present: warm, dry, intact, normal color. Absent: rash ED Course Vital Signs 05/22/18 05/23/18 05/23/18 18:09 01:34 01:46 Temperature 99.4 F Pulse Rate 112 H 105 H Respiratory 18 15 Rate Blood Pressure 170/92 115/65 115/65 O2 Sat by Pulse 96 97 Oximetry 05/23/18 05/23/18 01:52 01:53 Temperature 98.7 F Pulse Rate Respiratory 20 Rate Blood Pressure O2 Sat by Pulse Oximetry - Reevaluation(s) Reevaluation #1: 05/23/18 02:05 Differential diagnosis, including but not limited to: Intracranial injury, electrolyte derangement, pneumonia, urinary tract infection, intra-abdominal infection, psychosis Assessment and plan: 27-year-old gentleman with bizarre behavior, disorganized, continually changing his story. Afebrile rectally, tachycardia resolves, sleeping comfortably at this time. Initially during his history and physical, had nonspecific jerking and shaking noted, while awake and conversing. Uncertain if this is psychiatric in nature, or organic in nature. Screening laboratory studies pending. Imaging studies pending at this time. Tachycardia resolved, given lack of fever, I doubt invasive bacterial illness at this time. Reevaluation #2: 05/23/18 02:22 There is no left hand tenderness, redness, warmth, pus or streaking. Therefore, I do not feel like an x-ray is necessary at this time. X-ray of the chest is negative for acute disease. Patient had a normal testicular exam, with no tenderness, but given his psychiatric disorganization, we will obtain an ultrasound anyhow. Reevaluation #3: 05/23/18 03:01 Testicular ultrasound negative for acute disease. Reevaluation #4: 05/23/18 04:57 Screening laboratory studies unremarkable. Ultrasound unremarkable. CT scan of the brain, abdomen, pelvis, unremarkable. Patient resting comfortably for many hours without clinical decompensation. He is asking to eat. At this point in time, it is not appear to be in immediate medical contraindication to psychiatric admission, evaluation, consultation. The crisis team has been informed. ED Medical Decision Making - Lab Data Result diagrams: 05/23/18 01:33 05/23/18 01:33 Vital Signs 05/22/18 05/23/18 05/23/18 18:09 01:34 01:46 Temperature 99.4 F Pulse Rate 112 H 105 H Respiratory 18 15 Rate Blood Pressure 170/92 115/65 115/65 O2 Sat by Pulse 96 97 Oximetry 05/23/18 05/23/18 01:52 01:53 Temperature 98.7 F Pulse Rate Respiratory 20 Rate Blood Pressure O2 Sat by Pulse Oximetry Lab Results 05/23/18 Range/Units 01:33 WBC 9.8 (4.5-11.0) K/mm3 RBC 4.16 (3.65-5.03) M/mm3 Hgb 13.2 (11.8-15.2) gm/dl Hct 39.1 (35.5-45.6) % MCV 94 (84-94) fl MCH 32 (28-32) pg MCHC 34 (32-34) % RDW 12.7 L (13.2-15.2) % Plt Count 183 (140-440) K/mm3 Lymph % (Auto) 25.3 (13.4-35.0) % [place] % (Auto) 11.3 H (0.0-7.3) % Eos % (Auto) 1.5 (0.0-4.3) % Baso % (Auto) 0.6 (0.0-1.8) % Lymph # 2.5 (1.2-5.4) K/mm3 [place] # 1.1 H (0.0-0.8) K/mm3 Eos # 0.1 (0.0-0.4) K/mm3 Baso # 0.1 (0.0-0.1) K/mm3 Seg Neutrophils % 61.3 (40.0-70.0) % Seg Neutrophils # 6.0 (1.8-7.7) K/mm3 - EKG Data -: EKG Interpreted by [facility] EKG shows normal: sinus rhythm, axis, intervals, QRS complexes, ST-T waves - EKG Data When compared to previous EKG there are: no significant change, previous EKG unavailable - Radiology Data Radiology results: pending, report reviewed, image reviewed Critical care attestation.: If time is entered above; I have spent that time in minutes in the direct care of this critically ill patient, excluding procedure time. ED Disposition Clinical Impression: Homelessness, Medical clearance for psychiatric admission Disposition: DC/TX-[facility] PSY HOSP/PSY UNIT Is pt being admited?: No Does the pt Need Aspirin: No Condition: Good Referrals: ISRAEL KOHLI MD [Primary Care Provider] - 3-5 Days
[2018-05-23 01:56] LABS: Basophils # (Auto) 0.1 K/mm3 (0.0-0.1); Basophils % (Auto) 0.6 % (0.0-1.8); Eosinophils # (Auto) 0.1 K/mm3 (0.0-0.4); Eosinophils % (Auto) 1.5 % (0.0-4.3); Hematocrit 39.1 % (35.5-45.6); Hemoglobin 13.2 gm/dl (11.8-15.2); Lymphocytes # (Auto) 2.5 K/mm3 (1.2-5.4); Lymphocytes % (Auto) 25.3 % (13.4-35.0); Mean Corpuscular HGB Conc 34 % (32-34); Mean Corpuscular Volume 94 fl (84-94); Monocytes # (Auto) 1.1 K/mm3 (0.0-0.8); Monocytes % (Auto) 11.3 % (0.0-7.3); Platelet Count 183 K/mm3 (140-440); Red Blood Count 4.16 M/mm3 (3.65-5.03); Red Cell Distribution Width 12.7 % (13.2-15.2)
--- NOTE | 2018-05-23 01:58 | XRay Report ---
PROCEDURE: XR CHEST 1V AP TECHNIQUE: Chest radiograph single view. HISTORY: sepsis COMPARISONS: None . FINDINGS: Heart: Normal. Mediastinum/Vessels: Normal. Lungs/Pleural space: Normal. Bony thorax: No acute osseous abnormality. Life support devices: None. IMPRESSION: No acute cardiopulmonary abnormality. This document is electronically signed by Aliya Edmond DO., May 23 2018 01:55:48 AM ET
[2018-05-23 02:11] LABS: INR 0.95 (0.87-1.13)
[2018-05-23 02:12] LABS: Partial Thromboplastin Time 36.4 Sec. (24.2-36.6)
[2018-05-23 02:19] LABS: Alanine Aminotransferase 10 units/L (7-56); Albumin 3.8 g/dL (3.9-5); BUN/Creatinine Ratio 18; Blood Urea Nitrogen 11 mg/dL (9-20); Calcium 9.4 mg/dL (8.4-10.2); Hemolysis Index 6
--- NOTE | 2018-05-23 02:46 | Ultrasound Report ---
PROCEDURE: US TESTICULAR DOPPLER COMP TECHNIQUE: Real-time renee-scale and color flow Doppler sonography in multiple planes of the scrotum, testicles, and epididymes was performed. Velocity spectral waveform analysis and color Doppler imagi ng of the arterial inflow and venous outflow of the testicles was performed with image documentation. HISTORY: hx of testicle pain COMPARISONS: None . FINDINGS: RIGHT TESTICLE: Size: 4.9 x 2.1 x 3.1 cm . Appearance: Normal size and echotexture . Arterial blood flow: Normal spectral waveforms, flow velocities and color flow images.. Venous blood flow: Normal spectral waveforms and color flow images. Right epididymis: Normal size and echotexture . Hydrocele: None . LEFT TESTICLE Size: 4.6 x 2 x 2.8 cm . Appearance: Normal size and echotexture . Arterial blood flow: Normal spectral waveforms, flow velocities and color flow images.. Venous blood flow: Normal spectral waveforms and color flow images. Left epididymis: Normal size and echotexture . Hydrocele: None . IMPRESSION: Normal Examination . This document is electronically signed by Aliya Edmond DO., May 23 2018 02:44:55 AM ET
[2018-05-23 03:14] LABS: Bilirubin,Urine NEG (Negative); Blood,Urine NEG (Negative); Color,Urine Yellow (Yellow); Mucus,Urine FEW /HPF; Protein,Urine <15 mg/dL mg/dL (Negative); WBC,Urine < 1.0 /HPF (0.0-6.0)
[2018-05-23 03:22] LABS: Amphetamine Screen,Urine PRESUMPTIVE NEGATIVE; Benzodiazepines Screen,Urine PRESUMPTIVE NEGATIVE; Cannabinoid Screen,Urine PRESUMPTIVE NEGATIVE; Cocaine Screen,Urine PRESUMPTIVE NEGATIVE; Methadone Screen,Urine PRESUMPTIVE NEGATIVE; Opiate Screen,Urine PRESUMPTIVE NEGATIVE
--- NOTE | 2018-05-23 04:36 | Cat Scan Report ---
PROCEDURE: CT HEAD/BRAIN WO CON TECHNIQUE: Axial CT images without contrast. HISTORY: ams COMPARISONS: None FINDINGS: The brain attenuation with its renee-white matter interface is normal. No intracranial hemorrhage, mass effect or hydrocephalus. The calvarium is intact. The imaged paranasal sinuses and mastoids are clear. IMPRESSION: No acute intracranial process. . This document is electronically signed by Jose Arrington MD., May 23 2018 04:34:32 AM ET
--- NOTE | 2018-05-23 04:42 | Cat Scan Report ---
PROCEDURE: CT ABDOMEN PELVIS WO CON TECHNIQUE: Axial noncontrast CT with reformations HISTORY: ams sep[sis COMPARISONS: None FINDINGS: The lung bases are clear. There is either mild thickening of the distal esophagus or tiny hiatal hernia. The gallbladder, liver, spleen, pancreas and adrenal glands are unremarkable. No evidence of urolithiasis or hydronephrosis. The appendix is normal. The bowel is unremarkable. The intrapelvic genitourinary viscera are within normal limits. IMPRESSION: No acute intra-abdominal or intrapelvic abnormality identified. . This document is electronically signed by Jose Arrington MD., May 23 2018 04:40:47 AM ET
--- NOTE | 2018-05-24 15:25 | Consultation ---
History of Present Illness - Reason for Consult Consult date: 05/24/18 Reason for consult: Mental Health Evaluation Requesting physician: CEASAR PALMA - Chief Complaint Chief complaint: "I'm here" - History of Present Psychiatric Illness 27 y.o. white male who presented to the ER for somatic symptoms and bizarre behavior. Today the patient is calm, but disorganized during the assessment. He stated that he had several "pain issues." He was asked several times about describing the pain he was experiencing, his answers were not logical. He had to be redirected several times to keep him on topic. Overall, the patient isn't a good historian at this time. No gestures of SI/HI's. Medications and Allergies Allergies Allergy/AdvReac Type Severity Reaction Status Date / Time quetiapine fumarate Allergy Unknown Verified 04/16/18 21:57 [From Seroquel] Home Medications Medication Instructions Recorded Confirmed Last Taken Type Unobtainable 05/23/18 05/23/18 Unknown History Active Meds: Active Medications Haloperidol Lactate (Haldol) 5 mg IM Q6HR PRN PRN Reason: Agitation Lorazepam (Ativan) 2 mg IM Q4HR PRN PRN Reason: Agitation Past psychiatric history - Past Medical History Past Medical History: other (Unable to obtain) Past Surgical History: Other (Unable to obtain ) - past Psychiatric treatment and history psychiatric treatment history: Several inpatient psy setting sin the past. Denies a fam psy hx. - Social History Social history: other (Unable to obtain) Mental Status Exam - Vital signs Last Vital Signs Temp 97.2 F L 05/24/18 14:20 Pulse 93 H 05/24/18 14:20 Resp 18 05/24/18 14:20 BP 112/66 05/24/18 14:20 Pulse Ox 96 05/24/18 14:20 - Exam Narrative exam: MSE: Appearance: calm Behavior: regular eye contact Speech: regular rate and tone Mood:: "okay" Affect: flat Thought Process:disorganized. loose associations Thought Content: no gestures of SI/HI's, delusional Motor Activity: sitting up in bed Cognition: A/O x3 Insight: poor Judgment: poor Results Result Diagrams: 05/23/18 01:33 05/23/18 01:33 All other labs normal. Assessment and Plan Assessment and plan: Impression: Unspecified Psychosis. Today the patient is calm, but disorganized during the assessment. DDx: Schizophrenia, Bipolar DO with psychosis, Schzoaffective DO Recommendation/Plan: Continue 1013 and start Zyprexa 5 mg PO HS for psychosis. Attempted to discuss possible metabolic side effects of Zyprexa with the patient reference Zyprexa. Dispo: The patient was referred to inpatient psy services. Staffed with Dr Leatha Mcgregor.
--- NOTE | 2018-05-25 09:57 | Progress Note ---
Subjective - Reason for Consult Consult date: 05/25/18 Reason for consult: Psychiatry Follow-up - Chief Complaint Chief complaint: "II need to leave" 27 y.o. white male who presented to the ER for somatic symptoms and bizarre behavior. Today the patient is calm, but still disorganized during the assessment. He stated something about hearing "grandmother's voices." He could not elaborate about the voices when asked. The patient appears to be responding to some type of stimuli. He denies SI/HI's and VH's. No indication of side effects of his medication. Mental Status Exam - Vital signs Last Vital Signs Temp 98.1 F 05/25/18 07:59 Pulse 95 H 05/25/18 07:59 Resp 18 05/25/18 07:59 BP 129/90 05/25/18 07:59 Pulse Ox 100 05/25/18 07:59 - Exam Narrative exam: MSE: Appearance: calm Behavior: regular eye contact Speech: regular rate and tone Mood:: "okay" Affect: flat Thought Process: disorganized Thought Content: denies SI/HI' and VH's, delusional Motor Activity: sitting up in bed Cognition: A/O x3 Insight: poor Judgment: poor Assessment and Plan Impression: Unspecified Psychosis. Today the patient is calm, but still disorganized during the assessment. DDx: Schizophrenia, Bipolar DO with psychosis, Schzoaffective DO Recommendation/Plan: Continue 1013 and Zyprexa 5 mg PO HS for psychosis. Attempted to discuss possible metabolic side effects of Zyprexa with the patient reference Zyprexa. Dispo: The patient was referred to inpatient psy services. Will staff with Dr Leatha Mcgregor.
[2018-05-25] MEDS ORDERED: D50W (25GM) Syringe IV ONE (10:53)
[2018-05-25 18:06] VITALS: BP 143/84
== END 2018-05-25 19:24 ==
LOC: ED 18:03 → EEVIPCON 18:03 → ED 05-25 19:24
DX: F31.9 Bipolar disorder, unspecified (principal); F20.9 Schizophrenia, unspecified; M79.642 Pain in left hand; Z59.0 Homelessness; Z88.8 Allergy status to other drugs, medicaments and biological substances; K44.9 Diaphragmatic hernia without obstruction or gangrene
CPT/HCPCS: 36415; 70450; 71045; 74176; 80053; 80164; 80178; 80307; 81001; 82140; 82150; 82550; 83690; 85025; 85610; 85730; 93010; 93975; 99285; G0480; J2060; 80320; 93005